=== PATIENT | female | born 1995 | race American Indian/Alaskan Native ===

== ENCOUNTER 2017-09-02 10:44 | Inpatient (IN) | payer MEDICAID, MEDICARE ==
[2017-09-02] MEDS ORDERED: Sodium Chloride 0.9% 1,000 ML IV ONE ×3 (11:02→13:00)
[2017-09-02] MEDS ORDERED: Albuterol 0.083% Inhal Sol (2.5 mg/3 mL) UD IH STA (11:03)
[2017-09-02] MEDS ORDERED: Sodium Chloride 0.9% 1,000 ML ONE ×2 (11:15→12:53)
[2017-09-02] MEDS ORDERED: Albuterol 0.083% Inhal Sol (2.5 mg/3 mL) UD ONE (11:15)
[2017-09-02 11:24] LABS: BASO # 0.1 K/uL (0.0-0.2); BASO % 0.3 % (0.0-2.0); EOS % 0.1 % (0.0-4.0); HEMOGLOBIN 14.9 g/dL (11.0-16.0); LYMPH # 0.8 K/uL (1.0-4.3); LYMPH % 3.4 % (20.0-40.0); MEAN CELL VOLUME 89.1 fL (81.0-99.0); MEAN CORPUSCULAR HEMOGLOBIN 30.9 pg (27.0-31.0); MEAN CORPUSCULAR HGB CONC 34.7 g/dL (33.0-37.0); MEAN PLATELET VOLUME 8.8 fL (7.2-11.7); MONO % 4.4 % (0.0-10.0); NEUT # 21.4 K/uL (1.8-7.0); NEUT % 91.8 % (50.0-75.0); PLATELET COUNT 272 K/uL (130-400); RBC 4.82 Mil/uL (3.80-5.20); RED CELL DISTRIBUTION WIDTH 12.8 % (11.5-14.5)
[2017-09-02 11:31] LABS: WHITE BLOOD COUNT 23.3 K/uL (4.8-10.8)
[2017-09-02 11:37] LABS: ALBUMIN 4.3 g/dL (3.5-5.0); ALT/SGPT 22 U/L (9-52); AST/SGOT 27 U/L (14-36); BLOOD UREA NITROGEN 8 mg/dL (7-17); CALCIUM 8.9 mg/dl (8.6-10.4); GFR AFRICAN-AMERICAN > 60; GFR NON-AFRICAN AMERICAN > 60
--- NOTE | 2017-09-02 11:49 | C.PDOC ---
History Of Present Illness 22-year-old female BIBA for sore throat and difficulty swallowing. Symptoms began yesterday and worsened today, and are associated with fever/chills and rhinorrhea. Patient has PMHx of asthma and B/L carotid paragangliomas (s/p radiation). She denies SOB, vomiting/diarrhea, neck pain/stiffness, dizziness. Time Seen by Provider: 09/02/17 10:55 Chief Complaint (Nursing): ENT Problem History Per: Patient, EMS History/Exam Limitations: Clinical Condition Onset/Duration Of Symptoms: Days (2) Current Symptoms Are (Timing): Still Present Symptoms Have Been: Continuous Severity: Moderate Past Medical History Reviewed: Historical Data, Nursing Documentation, Vital Signs Vital Signs: Last Vital Signs Temp 102 F H 09/02/17 11:05 Pulse 106 H 09/02/17 13:03 Resp 18 09/02/17 13:03 BP 126/60 09/02/17 13:03 Pulse Ox 99 09/02/17 13:03 - Medical History PMH: Asthma, Bipolar Disorder Other PMH: Paragangliomas B/L carotids Other Surgeries: attempted removal of B/L paragangliomas Family History: States: No Known Family Hx - Social History Hx Tobacco Use: Yes Hx Alcohol Use: Yes Hx Substance Use: No - Immunization History Hx Tetanus Toxoid Vaccination: No Hx Influenza Vaccination: No Hx Pneumococcal Vaccination: No Review Of Systems Except As Marked, All Systems Reviewed And Found Negative. Constitutional: Positive for: Fever, Chills ENT: Positive for: Nose Congestion, Throat Pain, Throat Swelling Cardiovascular: Negative for: Chest Pain Respiratory: Negative for: Cough, Shortness of Breath Skin: Negative for: Rash Physical Exam - Physical Exam Appears: Well, Non-toxic, In Acute Distress (in moderate distress) Skin: No Rash Head: Normacephalic Eye(s): bilateral: Normal Inspection Nose: Other (clear rhinorrhea ) Oral Mucosa: Moist Tongue: Normal Appearing, No Swelling Lips: Normal Appearing, No Swelling Throat: Erythema, Exudate, Drooling (patient spitting up saliva), Other (large erythematous tonils with exudates B/L , erythematous uvula with mild swelling) Neck: Supple Cardiovascular: Rhythm Regular (tachycardic ) Respiratory: Normal Breath Sounds (tachycardic), No Rales, No Rhonchi, No Wheezing Gastrointestinal/Abdominal: Normal Exam, Bowel Sounds, Soft, No Tenderness Neurological/Psych: Oriented x3 ED Course And Treatment - Laboratory Results Result Diagrams: 09/02/17 11:21 09/02/17 11:21 O2 Sat by Pulse Oximetry: 100 (RA) Pulse Ox Interpretation: Normal - Other Rad lateral soft tissue neck Xray X-Ray: Viewed By Me, Read By Radiologist Interpretation: Accession No. : [id number]. Patient Name / ID : MARILEE DENIS / [id number]. Exam Date : 09/02/2017 11:24:44 ( Approved ). Study Comment : Sex / Age : F / 22Y. Creator : Leonardo Shaw MD. Dictator : Leonardo Shaw MD. Floor Coverings Installer : Painter Mirror : Leonardo Shaw MD. Approver2 : Report Date : 09/02/2017 12:16:27. My Comment : . PROCEDURE: Radiographs of the neck (soft tissue). HISTORY: throat pain. COMPARISON: None. TECHNIQUE: Frontal and Lateral Radiographs of the neck, optimized for soft tissue visualization. FINDINGS: SOFT TISSUES: Epiglottis normal in appearance. No retropharyngeal soft tissue swelling. There is prominence of the tonsillar soft tissue which may reflect an acute tonsillitis. Question is raised of laryngeal edema, with vague increased soft tissue density in the region of the larynx, in the lateral projection. The tracheal air column is midline in position. There is no radiopaque foreign body. Numerous surgical clips are seen in the right lateral aspect of the neck. CERVICAL SPINE: Grossly unremarkable. OTHER FINDINGS: None. IMPRESSION: No evidence of epiglottitis. Tonsillar prominence may reflect acute tonsillitis. Questionable laryngeal edema. Progress Note: Patient placed on cardia monitor. Given IV solumedrol, IV NS bolus, IV Toradol and albuterol neb treatment. Strep A (+), IV Rocephin given. 1:10pm- Discussed patient with ENT Dr. Benavides, is aware of consult. - Physician Consult Information Physician Contacted: Sanjana Bridges Outcome Of Conversation: Discussed patient with hospitalist, agrees with admission for strep pharyngitis, difficulty tolerating PO, dehydration, leukocytosis. Disposition - Disposition
[2017-09-02 11:54] LABS: HCG,QUALITATIVE URINE NEGATIVE (NEGATIVE)
[2017-09-02 11:56] LABS: BANDS 2 % (0-2); LYMPHOCYTE 6 % (20-40); MONOCYTE 10 % (0-10); NEUTROPHIL 82 % (50-75); PLATELET ESTIMATE NORMAL (NORMAL); TOTAL CELLS COUNTED 100
[2017-09-02 12:00] LABS: SQUAMOUS EPITHIAL 9 /hpf (0-5); URINE BILIRUBIN NEGATIVE (NEGATIVE); URINE BLOOD 1+ (NEGATIVE); URINE CLARITY Hazy (Clear); URINE COLOR Yellow (YELLOW); URINE GLUCOSE (UA) NORMAL (Normal); URINE LEUKOCYTE ESTERASE NEG Leu/uL (Negative); URINE PROTEIN 1+ mg/dL (NEGATIVE); URINE UROBILINOGEN NORMAL mg/dL (0.2-1.0)
[2017-09-02 12:06] LABS: VENOUS BLOOD GAS PCO2 38 mmHg (40-60); VENOUS BLOOD GAS PO2 14 mm/Hg (30-55); VENOUS BLOOD PH 7.43 (7.32-7.43)
--- NOTE | 2017-09-02 12:18 | RAD ---
PROCEDURE: Radiographs of the neck (soft tissue). HISTORY: throat pain COMPARISON: None. TECHNIQUE: Frontal and Lateral Radiographs of the neck, optimized for soft tissue visualization. FINDINGS: SOFT TISSUES: Epiglottis normal in appearance. No retropharyngeal soft tissue swelling. There is prominence of the tonsillar soft tissue which may reflect an acute tonsillitis. Question is raised of laryngeal edema, with vague increased soft tissue density in the region of the larynx, in the lateral projection. The tracheal air column is midline in position. There is no radiopaque foreign body. Numerous surgical clips are seen in the right lateral aspect of the neck. CERVICAL SPINE: Grossly unremarkable. OTHER FINDINGS: None. IMPRESSION: No evidence of epiglottitis. Tonsillar prominence may reflect acute tonsillitis. Questionable laryngeal edema.
[2017-09-02] MEDS: cefTRIAXone IV 1 gm in Dextros 50 ML IV STA ×2 (12:25→12:38)
--- NOTE | 2017-09-02 14:19 | CP.PCM.HP ---
Addendum entered and electronically signed by Kamari Braun DO 09/02/17 18:57: Assessment and plan Strep pharyngitis -Fever 102, WBC 23.3 -Rapid strep positive, rapid flu negative -Neck xray: no evidence of epiglottitis. Tonsillar prominence may reflect acute tonsillitis -Neck CT: Enlarged palatine and adenoidal tonsils. No evidence of peritonsillar abscess (see report) -Clindamycin 600mg IV Q6hr -Toradol 30mg IV Q6 prn -NPO -Speech and swallow evaluate -Pending blood culture -ENT consult, Dr. Benavides help appreciated Right upper lobe infiltrate -Azithromycin 500mg IV q24 for atypical -Clindamycin 600mg IV Q6hr -CXR showed right upper lobe lung infiltrate, possible pneumonia (see report) Asthma -Albuterol IH Q4h prn -Oxygen 2L via NC prn Prophylactic measures -Pepcid -Heparin Discussed with attending Dr. Gutierrez Original Note: <Kamari Braun - Last Filed: 09/02/17 17:52> History of Present Illness - History of Present Illness History of Present Illness: CC: Dysphasia 22 year old female with past medical history of bilateral carotid paraganglioma s/p radiation therapy, asthma and bipolar disorder presents to the ED complains of difficulty swallowing. Patient states she woke up yesterday morning with sore throat and non productive cough. Patient tried having some soup and realized that she cannot swallow well due to pain. Other associated symptoms include left ear pain, runny nose, shortness of breath, hoarseness of voice and fatigue. Patient reports that her daughter is recovering from a flu at home. Patient states her asthma is well controlled. She was never hospitalized and never intubated for asthma. Patient had radiation therapy at [facility] in 2010 for paraganglioma and never followed up afterwards because her neck never bothered her since. Patient denies having headache, chest pain, nausea, vomiting, or diarrhea. PMD: Dr. Herrmann PMHx: bilateral carotid paraganglioma, asthma and bipolar disorder PSHx: attempted removal of paraganglioma Allergy: NKDA Social: Admits to tobacco and alcohol, denies drug use Family Hx: non contributory Home meds: Seroquel 25mg, ventolin Present on Admission - Present on Admission Any Indicators Present on Admission: No Review of Systems - Constitutional Constitutional: As Per HPI, Chills, Fever - EENT Eyes: As Per HPI. absent: Discharge, Irritation Ears: As Per HPI, Ear Pain Nose/Mouth/Throat: As Per HPI, Dysphagia, Sore Throat - Cardiovascular Cardiovascular: As Per HPI, Dyspnea. absent: Chest Pain - Respiratory Respiratory: As Per HPI, Cough, Dyspnea - Gastrointestinal Gastrointestinal: As Per HPI. absent: Diarrhea, Nausea, Vomiting - Genitourinary Genitourinary: As Per HPI. absent: Urinary Frequency, Urinary Hesitance - Musculoskeletal Musculoskeletal: As Per HPI - Integumentary Integumentary: As Per HPI - Neurological Neurological: As Per HPI. absent: Dizziness, Headaches - Psychiatric Psychiatric: As Per HPI - Endocrine Endocrine: As Per HPI Past Patient History - Past Social History Smoking Status: Heavy Smoker > 10 Cigarettes Daily - PULMONARY Hx Asthma: Yes - PSYCHIATRIC Hx Bipolar Disorder: Yes Hx Substance Use: No - SURGICAL HISTORY Hx Surgeries: Yes Other/Comment: "CAROTID TUMOR, COULD NOT BE REMOVED, HAD RADIATION". 2010 - ANESTHESIA Hx Anesthesia: Yes Hx Anesthesia Reactions: No Hx Malignant Hyperthermia: No Meds Allergies/Adverse Reactions: Allergies Allergy/AdvReac Type Severity Reaction Status Date / Time No Known Allergies Allergy Unverified 11/30/14 15:59 Physical Exam - Constitutional Appears: Non-toxic - Head Exam Head Exam: ATRAUMATIC, NORMAL INSPECTION - Eye Exam Eye Exam: EOMI, Normal appearance Pupil Exam: NORMAL ACCOMODATION - ENT Exam ENT Exam: Mucous Membranes Moist Additional comments: Bilateral tonsils and uvula englarged, erythematous. - Neck Exam Additional comments: surgical scar located at right anterior neck - Respiratory Exam Respiratory Exam: Clear to Auscultation Bilateral, NORMAL BREATHING PATTERN. absent: Wheezes, Respiratory Distress - Cardiovascular Exam Cardiovascular Exam: Tachycardia, +S1, +S2 - GI/Abdominal Exam GI & Abdominal Exam: Normal Bowel Sounds, Soft. absent: Tenderness - Extremities Exam Extremities exam: Positive for: normal inspection - Neurological Exam Neurological exam: Alert, Oriented x3 - Psychiatric Exam Psychiatric exam: Normal Affect, Normal Mood - Skin Skin Exam: Dry, Warm Results - Vital Signs Recent Vital Signs: Last Vital Signs Temp 98.7 F 09/02/17 13:40 Pulse 106 H 09/02/17 13:03 Resp 18 09/02/17 13:03 BP 126/60 09/02/17 13:03 Pulse Ox 100 09/02/17 14:12 - Labs Result Diagrams: 09/02/17 11:21 09/02/17 11:21 Labs: Laboratory Results - last 24 hr 09/02/17 09/02/17 09/02/17 11:03 11:03 11:21 WBC 23.3 H RBC 4.82 Hgb 14.9 Hct 42.9 MCV 89.1 MCH 30.9 MCHC 34.7 RDW 12.8 Plt Count 272 MPV 8.8 Neut % (Auto) 91.8 H Lymph % (Auto) 3.4 L [place] % (Auto) 4.4 Eos % (Auto) 0.1 Baso % (Auto) 0.3 Neut # (Auto) 21.4 H Lymph # (Auto) 0.8 L [place] # (Auto) 1.0 H Eos # (Auto) 0.0 Baso # (Auto) 0.1 Neutrophils % (Manual) 82 H Band Neutrophils % 2 Lymphocytes % (Manual) 6 L Monocytes % (Manual) 10 Platelet Estimate Normal RBC Morphology Normal pO2 VBG pH VBG pCO2 VBG HCO3 VBG Total CO2 VBG O2 Sat (Calc) VBG Base Excess VBG Potassium Glucose Lactate Sodium Potassium Chloride Carbon Dioxide Anion Gap BUN Creatinine Est GFR ( Amer) Est GFR (Non-Af Amer) Random Glucose Calcium Total Bilirubin AST ALT Alkaline Phosphatase Total Protein Albumin Globulin Albumin/Globulin Ratio Venous Blood Potassium Urine Color Urine Clarity Urine pH Ur Specific [place] Urine Protein Urine Glucose (UA) Urine Ketones Urine Blood Urine Nitrate Urine Bilirubin Urine Urobilinogen Ur Leukocyte Esterase Urine WBC (Auto) Urine RBC (Auto) Ur Squamous Epith Cells Urine HCG, Qual Influenza Typ A,B (EIA) Negative for flu a/b Grp A Beta Strep Ag Positive H 09/02/17 09/02/17 09/02/17 11:21 11:45 12:02 WBC RBC Hgb Hct MCV MCH MCHC RDW Plt Count MPV Neut % (Auto) Lymph % (Auto) [place] % (Auto) Eos % (Auto) Baso % (Auto) Neut # (Auto) Lymph # (Auto) [place] # (Auto) Eos # (Auto) Baso # (Auto) Neutrophils % (Manual) Band Neutrophils % Lymphocytes % (Manual) Monocytes % (Manual) Platelet Estimate RBC Morphology pO2 14 L VBG pH 7.43 VBG pCO2 38 L VBG HCO3 23.6 VBG Total CO2 26.4 VBG O2 Sat (Calc) 23.2 L VBG Base Excess 1.0 VBG Potassium 3.3 L Glucose 81 Lactate 1.2 Sodium 135 135.0 Potassium 3.7 Chloride 97 L 101.0 Carbon Dioxide 25 Anion Gap 17 BUN 8 Creatinine 0.9 Est GFR ( Amer) > 60 Est GFR (Non-Af Amer) > 60 Random Glucose 89 Calcium 8.9 Total Bilirubin 1.0 AST 27 ALT 22 Alkaline Phosphatase 64 Total Protein 8.4 H Albumin 4.3 Globulin 4.2 H Albumin/Globulin Ratio 1.0 Venous Blood Potassium 3.3 L Urine Color Yellow Urine Clarity Hazy Urine pH 6.0 Ur Specific [place] 1.024 Urine Protein 1+ H Urine Glucose (UA) Normal Urine Ketones 2+ H Urine Blood 1+ H Urine Nitrate Negative Urine Bilirubin Negative Urine Urobilinogen Normal Ur Leukocyte Esterase Neg Urine WBC (Auto) 2 Urine RBC (Auto) 17 H Ur Squamous Epith Cells 9 H Urine HCG, Qual Negative Influenza Typ A,B (EIA) Grp A Beta Strep Ag Assessment & Plan - Assessment and Plan (Free Text) Assessment: Strep pharyngitis -Fever 102, WBC 23.3 -Rapid strep positive, rapid flu negative -Neck xray: no evidence of epiglottitis. Tonsillar prominence may reflect acute tonsillitis -Neck CT: Enlarged palatine and adenoidal tonsils. No evidence of peritonsillar abscess (see report) -Clindamycin 600mg IV Q6hr -Toradol 30mg IV Q6 prn -NPO -Speech and swallow evaluate -Pending blood culture -ENT consult, Dr. Benavides help appreciated Asthma -Albuterol IH Q4h prn -Oxygen 2L via NC prn Prophylactic measures -Pepcid -Heparin Discussed with attending Dr. Gutierrez <Evin Gutierrez - Last Filed: 09/02/17 19:22> Results - Vital Signs Recent Vital Signs: Last Vital Signs Temp 98.6 F 09/02/17 15:04 Pulse 86 09/02/17 18:24 Resp 18 09/02/17 18:24 BP 104/62 09/02/17 18:24 Pulse Ox 98 09/02/17 18:24 - Labs Result Diagrams: 09/02/17 11:21 09/02/17 11:21 Labs: Laboratory Results - last 24 hr 09/02/17 09/02/17 09/02/17 11:03 11:03 11:21 WBC 23.3 H RBC 4.82 Hgb 14.9 Hct 42.9 MCV 89.1 MCH 30.9 MCHC 34.7 RDW 12.8 Plt Count 272 MPV 8.8 Neut % (Auto) 91.8 H Lymph % (Auto) 3.4 L [place] % (Auto) 4.4 Eos % (Auto) 0.1 Baso % (Auto) 0.3 Neut # (Auto) 21.4 H Lymph # (Auto) 0.8 L [place] # (Auto) 1.0 H Eos # (Auto) 0.0 Baso # (Auto) 0.1 Neutrophils % (Manual) 82 H Band Neutrophils % 2 Lymphocytes % (Manual) 6 L Monocytes % (Manual) 10 Platelet Estimate Normal RBC Morphology Normal pO2 VBG pH VBG pCO2 VBG HCO3 VBG Total CO2 VBG O2 Sat (Calc) VBG Base Excess VBG Potassium Glucose Lactate Sodium Potassium Chloride Carbon Dioxide Anion Gap BUN Creatinine Est GFR ( Amer) Est GFR (Non-Af Amer) Random Glucose Calcium Total Bilirubin AST ALT Alkaline Phosphatase Total Protein Albumin Globulin Albumin/Globulin Ratio Venous Blood Potassium Urine Color Urine Clarity Urine pH Ur Specific [place] Urine Protein Urine Glucose (UA) Urine Ketones Urine Blood Urine Nitrate Urine Bilirubin Urine Urobilinogen Ur Leukocyte Esterase Urine WBC (Auto) Urine RBC (Auto) Ur Squamous Epith Cells Urine HCG, Qual Influenza Typ A,B (EIA) Negative for flu a/b Grp A Beta Strep Ag Positive H 09/02/17 09/02/17 09/02/17 11:21 11:45 12:02 WBC RBC Hgb Hct MCV MCH MCHC RDW Plt Count MPV Neut % (Auto) Lymph % (Auto) [place] % (Auto) Eos % (Auto) Baso % (Auto) Neut # (Auto) Lymph # (Auto) [place] # (Auto) Eos # (Auto) Baso # (Auto) Neutrophils % (Manual) Band Neutrophils % Lymphocytes % (Manual) Monocytes % (Manual) Platelet Estimate RBC Morphology pO2 14 L VBG pH 7.43 VBG pCO2 38 L VBG HCO3 23.6 VBG Total CO2 26.4 VBG O2 Sat (Calc) 23.2 L VBG Base Excess 1.0 VBG Potassium 3.3 L Glucose 81 Lactate 1.2 Sodium 135 135.0 Potassium 3.7 Chloride 97 L 101.0 Carbon Dioxide 25 Anion Gap 17 BUN 8 Creatinine 0.9 Est GFR ( Amer) > 60 Est GFR (Non-Af Amer) > 60 Random Glucose 89 Calcium 8.9 Total Bilirubin 1.0 AST 27 ALT 22 Alkaline Phosphatase 64 Total Protein 8.4 H Albumin 4.3 Globulin 4.2 H Albumin/Globulin Ratio 1.0 Venous Blood Potassium 3.3 L Urine Color Yellow Urine Clarity Hazy Urine pH 6.0 Ur Specific [place] 1.024 Urine Protein 1+ H Urine Glucose (UA) Normal Urine Ketones 2+ H Urine Blood 1+ H Urine Nitrate Negative Urine Bilirubin Negative Urine Urobilinogen Normal Ur Leukocyte Esterase Neg Urine WBC (Auto) 2 Urine RBC (Auto) 17 H Ur Squamous Epith Cells 9 H Urine HCG, Qual Negative Influenza Typ A,B (EIA) Grp A Beta Strep Ag Attending/Attestation - Attestation I have personally seen and examined this patient.: Yes I have fully participated in the care of the patient.: Yes I have reviewed all pertinent clinical information: Yes Notes (Text): Patient was seen and examined History taken from the patient. Complaining of throat pain .No stridor. Noted voice change,no dysphagia. chest x ray shows right upper lobe infiltrate .CT neck without contrast done RUL infiltrate,enlarged tonsils, no evidence of abscess. Has leukoctyosis/ wbc 23,fever 102F . GR A strep ag positive continue clindamycin and Zithromax. pulmonary consult d/w resident. I agree with the documentation of the resident's assessment and the plan
--- NOTE | 2017-09-02 14:37 | RAD ---
PROCEDURE: CHEST RADIOGRAPH, 1 VIEW HISTORY: admission COMPARISON: None available. FINDINGS: LUNGS: Right upper lobe infiltrate bordered by the minor fissure. No other infiltrate identified. PLEURA: No pneumothorax or pleural fluid seen. CARDIOVASCULAR: Normal. OSSEOUS STRUCTURES: No significant abnormalities. VISUALIZED UPPER ABDOMEN: Normal. OTHER FINDINGS: None. IMPRESSION: Right upper lobe infiltrate. Possible pneumonia.
[2017-09-02] MEDS: Clindamycin 600mg/50ml NS 600 MG/50 ML BAG IVPB SCH ×2 (14:46→21:37)
[2017-09-02] MEDS: Dextrose 5%/0.9% NS 1,000 ML IV SCH (14:47)
--- NOTE | 2017-09-02 15:12 | CT ---
PROCEDURE: CT NECK WITHOUT CONTRAST HISTORY: fever, h/o carotid paraganglioma COMPARISON: None. TECHNIQUE: CT of the neck without intravenous contrast. Coronal and sagittal reformats generated. Radiation dose: DLP 408.58 mGy-cm This CT exam was performed using one or more of the following dose reduction techniques: Automated exposure control, adjustment of the mA and/or kV according to patient size, and/or use of iterative reconstruction technique. FINDINGS: NASOPHARYNX: Unremarkable. SUPRAHYOID NECK: Enlarged adenoidal and palatine tonsils. No evidence of peritonsillar abscess. Please note that the examination is limited by the absence of intravenous contrast administration. INFRAHYOID NECK: Unremarkable larynx, hypopharynx, and supraglottic space. Vocal cords intact. MASS: None. GLANDS: Parotid and submandibular glands unremarkable. Normal size thyroid gland, without nodule. LYMPH NODES: Normal. No lymphadenopathy. CERVICAL SPINE: No fracture or focal lesion. OTHER FINDINGS: Numerous surgical clips in right-sided neck. Please correlate with history. There is a right upper lobe infiltrate only partially included in this examination. IMPRESSION: Evidence of prior surgery with numerous clips in right-sided neck. Enlarged palatine and adenoidal tonsils. No evidence of peritonsillar abscess although evaluation is limited by the absence of intravenous contrast administration. No evidence of epiglottitis. Right upper lobe infiltrate noted.
[2017-09-02] MEDS ORDERED: Azithromycin 500 MG in Sodium Chloride 0.9% 250 ML IVPB SCH (19:30)
[2017-09-03 01:17] VITALS: RESP 20
[2017-09-03] MEDS: Dextrose 5%/0.9% NS 1,000 ML IV SCH ×3 (02:26→19:32)
[2017-09-03] MEDS: Clindamycin 600mg/50ml NS 600 MG/50 ML BAG IVPB SCH ×4 (02:27→19:32)
[2017-09-03 06:51] LABS: BASO % 0.1 % (0.0-2.0); LYMPH # 0.6 K/uL (1.0-4.3); LYMPH % 2.6 % (20.0-40.0); MEAN CORPUSCULAR HEMOGLOBIN 30.4 pg (27.0-31.0); MEAN CORPUSCULAR HGB CONC 33.8 g/dL (33.0-37.0); MEAN PLATELET VOLUME 9.1 fL (7.2-11.7); MONO % 4.3 % (0.0-10.0); NEUT # 22.9 K/uL (1.8-7.0); PLATELET COUNT 240 K/uL (130-400); RBC 4.01 Mil/uL (3.80-5.20); RED CELL DISTRIBUTION WIDTH 12.8 % (11.5-14.5); WHITE BLOOD COUNT 24.6 K/uL (4.8-10.8)
[2017-09-03 06:54] LABS: HEMOGLOBIN 12.2 g/dL (11.0-16.0)
[2017-09-03 07:48] LABS: ALB/GLOB RATIO 0.9 (1.0-2.1); ALT/SGPT 13 U/L (9-52); AST/SGOT 20 U/L (14-36); BLOOD UREA NITROGEN 8 mg/dL (7-17); CALCIUM 7.4 mg/dl (8.6-10.4); GFR AFRICAN-AMERICAN > 60; GFR NON-AFRICAN AMERICAN > 60
--- NOTE | 2017-09-03 08:42 | CP.PCM.PN ---
<Atilio Stephens - Last Filed: 09/03/17 12:32> Subjective - Date & Time of Evaluation Date of Evaluation: 09/03/17 Time of Evaluation: 08:00 - Subjective Subjective: Medicine progress note for Dr. Argueta Patient seen and examined. Patient states that she has been able to tolerate a soft diet. Patient is not currently experiencing throat pain but states that the left side of her throat is intermittently sore. Patient denies any other acute complaints at this time. Objective - Vital Signs/Intake and Output Vital Signs (last 24 hours): Temp Pulse Resp BP Pulse Ox 97.9 F 81 20 100/61 98 09/03/17 00:00 09/03/17 03:35 09/03/17 00:00 09/03/17 00:00 09/03/17 03:35 Intake and Output: 09/03/17 09/03/17 06:59 18:59 Intake Total 720 Balance 720 - Medications Medications: Current Medications Albuterol (Ventolin Hfa 90 Mcg/Actuation (8 G)) 2 puff IH Q4H PRN PRN Reason: Cough Famotidine (Pepcid) 20 mg PO DAILY [facility] Heparin Sodium (Porcine) (Heparin) 5,000 units SC Q8 [facility] Last Admin: 09/03/17 05:53 Dose: 5,000 units Clindamycin Phosphate (Cleocin In Normal Saline) 600 mg in 50 mls @ 100 mls/hr IVPB Q6H [facility] PRN Reason: Protocol Last Admin: 09/03/17 02:27 Dose: 100 mls/hr Dextrose/Sodium Chloride (Dextrose 5%/0.9% Ns 1000 Ml) 1,000 mls @ 100 mls/hr IV .Q10H [facility] Last Admin: 09/03/17 02:26 Dose: 100 mls/hr Azithromycin 500 mg/ Sodium (Chloride) 250 mls @ 167 mls/hr IVPB Q24H [facility] PRN Reason: Protocol Last Admin: 09/02/17 19:40 Dose: 167 mls/hr Ketorolac Tromethamine (Toradol) 30 mg IVP Q6 PRN PRN Reason: Pain, moderate (4-7) Last Admin: 09/03/17 06:28 Dose: 30 mg Quetiapine Fumarate (Seroquel) 25 mg PO HS [facility] Last Admin: 09/02/17 22:55 Dose: 25 mg - Labs Labs: 09/03/17 06:39 09/03/17 06:39 - Additional Findings Additional findings: - Constitutional Appears: Non-toxic - Head Exam Head Exam: ATRAUMATIC, NORMAL INSPECTION - Eye Exam Eye Exam: EOMI, Normal appearance Pupil Exam: NORMAL ACCOMODATION - ENT Exam ENT Exam: Mucous Membranes Moist Additional comments: Bilateral tonsils and uvula englarged, erythematous. Tonsillar exudates noted. - Neck Exam Additional comments: surgical scar located at right anterior neck - Respiratory Exam Respiratory Exam: Clear to Auscultation Bilateral, NORMAL BREATHING PATTERN. absent: Wheezes, Respiratory Distress - Cardiovascular Exam Cardiovascular Exam: RRR, +S1, +S2 - GI/Abdominal Exam GI & Abdominal Exam: Normal Bowel Sounds, Soft. absent: Tenderness - Extremities Exam Extremities exam: Positive for: normal inspection - Neurological Exam Neurological exam: Alert, Oriented x3 - Psychiatric Exam Psychiatric exam: Normal Affect, Normal Mood - Skin Skin Exam: Dry, Warm Assessment and Plan - Assessment and Plan (Free Text) Plan: Strep pharyngitis -Fever 102, WBC 23.3 -Rapid strep positive, rapid flu negative -Neck xray: no evidence of epiglottitis. Tonsillar prominence may reflect acute tonsillitis -Neck CT: Enlarged palatine and adenoidal tonsils. No evidence of peritonsillar abscess (see report) -Clindamycin 600mg IV Q6hr -Toradol 30mg IV Q6 prn -Regular soft diet -Speech and swallow evaluate -Pending blood culture -ENT consult, Dr. Benavides help appreciated * No acute intervention on this admission per ENT. Will need outpatient follow up. Right upper lobe infiltrate -Discontinued Azithromycin 500mg IV q24 -Replaced with Zosyn 3.375 gm Q6H -Clindamycin 600mg IV Q6hr -CXR showed right upper lobe lung infiltrate, possible pneumonia (see report) Asthma -Albuterol IH Q4h prn -Oxygen 2L via NC prn Prophylactic measures -Pepcid -Heparin Disposition: Pending improvement in clinical status including leukocytosis, we will consider discharge tomorrow. Discussed with Dr. Ellie Stephens PGY-1 <Leonardo Argueta - Last Filed: 09/03/17 13:34> Objective - Vital Signs/Intake and Output Vital Signs (last 24 hours): Temp Pulse Resp BP Pulse Ox 97.9 F 81 20 100/61 98 09/03/17 00:00 09/03/17 03:35 09/03/17 00:00 09/03/17 00:00 09/03/17 03:35 Intake and Output: 09/03/17 09/03/17 06:59 18:59 Intake Total 720 Balance 720 - Medications Medications: Current Medications Albuterol (Ventolin Hfa 90 Mcg/Actuation (8 G)) 2 puff IH Q4H PRN PRN Reason: Cough Famotidine (Pepcid) 20 mg PO DAILY [facility] Last Admin: 09/03/17 11:08 Dose: 20 mg Heparin Sodium (Porcine) (Heparin) 5,000 units SC Q8 [facility] Last Admin: 09/03/17 05:53 Dose: 5,000 units Clindamycin Phosphate (Cleocin In Normal Saline) 600 mg in 50 mls @ 100 mls/hr IVPB Q6H [facility] PRN Reason: Protocol Last Admin: 09/03/17 09:00 Dose: 100 mls/hr Dextrose/Sodium Chloride (Dextrose 5%/0.9% Ns 1000 Ml) 1,000 mls @ 100 mls/hr IV .Q10H [facility] Last Admin: 09/03/17 11:08 Dose: 100 mls/hr Piperacillin Sod/Tazobactam (Sod 3.375 gm/ Sodium Chloride) 100 mls @ 200 mls/ hr IVPB Q6H [facility] PRN Reason: Protocol Ketorolac Tromethamine (Toradol) 30 mg IVP Q6 PRN PRN Reason: Pain, moderate (4-7) Last Admin: 09/03/17 13:08 Dose: 30 mg Quetiapine Fumarate (Seroquel) 25 mg PO HS [facility] Last Admin: 09/02/17 22:55 Dose: 25 mg - Labs Labs: 09/03/17 06:39 09/03/17 06:39 Attending/Attestation - Attestation I have personally seen and examined this patient.: Yes I have fully participated in the care of the patient.: Yes I have reviewed all pertinent clinical information, including history, physical exam and plan: Yes Notes (Text): 09/03/17 13:30 Medical attending: Patient was seen and examined by me. Agree with the above note by the resident The patient was not in any acute distress when we saw her. She reported still having some medium level of pain when seen, The patient on exam had very enlarged and edematous tonsils with some exudate. WBC very high She was earlier seen by ENT as well Patient wanted to go home - however given the very elevated WBC we explained to her that to wait another day untilw e can see a down trending of the WBCs. Leonardo Argueta
[2017-09-03 08:54] LABS: BANDS 5 % (0-2); LYMPHOCYTE 6 % (20-40); MONOCYTE 2 % (0-10); NEUTROPHIL 87 % (50-75); PLATELET ESTIMATE NORMAL (NORMAL); TOTAL CELLS COUNTED 100
--- NOTE | 2017-09-03 13:11 | CON ---
DATE: 09/03/2017 REQUESTING PHYSICIAN: Sanjana Bridges DO REASON FOR CONSULTATION: Throat pain. HISTORY: This is a 22-year-old female with a multiple day history of worsening throat pain, bilateral, constant, [id number] in intensity, who presents to the ER with these symptoms yesterday. The patient was assessed to having tonsillitis, Strep positive, was given steroids and antibiotics. Today, the patient reports that the throat pain has improved and she is tolerating liquids, it is moderate in intensity on both sides, constant at this today. She also has a history of paragangliomas around the carotids. She said she had it on both sides, got radiation for it, but it could not be resected since it wraps around the carotid. She did not follow up with her ENT physician as she stated that she was too scared. PAST MEDICAL HISTORY: As noted in the chart by me. MEDICATIONS: As noted in the chart by me. PHYSICAL EXAMINATION HEENT: Head atraumatic, normocephalic. FACE: Good facial movements bilaterally. CONSTITUTIONAL: Well fed, well nourished. COMMUNICATION: Communicates well and appropriately. EXTERNAL NOSE AND EARS: No masses. No lesions. No erythema. No edema. INTERNAL NOSE AND EARS: No masses. No lesions. No erythema. No edema. LIPS AND GUMS: No masses. No lesions. No erythema. No edema. ORAL CAVITY AND OROPHARYNX: Erythema, edema of the tonsils with exudates. NECK: Supple. No thyromegaly. No goiter. LYMPH NODES: No lymphadenopathy of the neck.. ASSESSMENT: 1. Severe tonsillitis. 2. Deviated septum. 3. Paraganglioma of the neck. PLAN: Since the patient is tolerating p.o., may be discharged home on p.o. antibiotics and Medrol Dosepak. The patient was given Dr. Carreon' name and phone number to follow up for her paraganglioma. 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 I also contacted Dr. Carreon and gave Dr. Carreon the patient's name and number, so Dr. Carreon' office can also contact the patient and have her follow up for her paraganglioma. Rick Benavides MD [facility] # [phone]
[2017-09-03] MEDS: Piperacillin/Tazobact 3.375 GM in Sodium Chloride 100 ML IVPB SCH ×2 (14:00→19:26)
--- NOTE | 2017-09-03 18:12 | CP.PCM.CON ---
History of Present Illness - History of Present Illness History of Present Illness: reason for consult: pneumonia Ms. Rincon is a 22F with PMHx of bilateral carotid paragangliomas s/p radiation therapy, asthma and bipolar disorder who presented to the ED complaining of difficulty swallowing, sore throat, shortness of breath, voice hoarseness and ear pain. The patient note that her daughter is recovering from a flu at home. PMD: Dr. Herrmann PMHx: asthma, b/l carotid paragangliomas irradiated in 2010, bipolar disorder PSx: None Meds: albuterol PRN, seroquel Allergies: Cherries SocialHx: admits alcohol and heavy tobacco use, denies illicit drug use Review of Systems - Review of Systems All systems: reviewed and no additional remarkable complaints except (fever and cough) Past Patient History - Past Medical History & Family History Past Medical History?: Yes - Past Social History Smoking Status: Current Some Days Smoker - CARDIAC Hx Cardiac Disorders: No - PULMONARY Hx Respiratory Disorders: Yes Hx Asthma: Yes - NEUROLOGICAL Hx Neurological Disorder: No - HEENT Hx HEENT Problems: No - RENAL Hx Chronic Kidney Disease: No - ENDOCRINE/METABOLIC Hx Endocrine Disorders: No - HEMATOLOGICAL/ONCOLOGICAL Hx Blood Disorders: No - INTEGUMENTARY Hx Dermatological Problems: No - MUSCULOSKELETAL/RHEUMATOLOGICAL Hx Musculoskeletal Disorders: No Hx Falls: No - GASTROINTESTINAL Hx Gastrointestinal Disorders: No - GENITOURINARY/GYNECOLOGICAL Hx Genitourinary Disorders: No - PSYCHIATRIC Hx Psychophysiologic Disorder: Yes Hx Bipolar Disorder: Yes Hx Substance Use: No - SURGICAL HISTORY Hx Surgeries: Yes Other/Comment: "CAROTID TUMOR, COULD NOT BE REMOVED, HAD RADIATION". 2010 - ANESTHESIA Hx Anesthesia: Yes Hx Anesthesia Reactions: No Hx Malignant Hyperthermia: No Has any member of the family had a problem w/ anesthesia?: No Meds Allergies/Adverse Reactions: Allergies Allergy/AdvReac Type Severity Reaction Status Date / Time No Known Allergies Allergy Unverified 11/30/14 15:59 - Medications Medications: Current Medications Albuterol (Ventolin Hfa 90 Mcg/Actuation (8 G)) 2 puff IH Q4H PRN PRN Reason: Cough Famotidine (Pepcid) 20 mg PO DAILY [facility] Last Admin: 09/03/17 11:08 Dose: 20 mg Heparin Sodium (Porcine) (Heparin) 5,000 units SC Q8 [facility] Last Admin: 09/03/17 14:32 Dose: 5,000 units Clindamycin Phosphate (Cleocin In Normal Saline) 600 mg in 50 mls @ 100 mls/hr IVPB Q6H [facility] PRN Reason: Protocol Last Admin: 09/03/17 14:32 Dose: 100 mls/hr Dextrose/Sodium Chloride (Dextrose 5%/0.9% Ns 1000 Ml) 1,000 mls @ 100 mls/hr IV .Q10H [facility] Last Admin: 09/03/17 11:08 Dose: 100 mls/hr Piperacillin Sod/Tazobactam (Sod 3.375 gm/ Sodium Chloride) 100 mls @ 200 mls/ hr IVPB Q6H [facility] PRN Reason: Protocol Last Admin: 09/03/17 14:00 Dose: 200 mls/hr Ketorolac Tromethamine (Toradol) 30 mg IVP Q6 PRN PRN Reason: Pain, moderate (4-7) Last Admin: 09/03/17 13:08 Dose: 30 mg Quetiapine Fumarate (Seroquel) 25 mg PO HS [facility] Last Admin: 09/02/17 22:55 Dose: 25 mg Physical Exam - Head Exam Head Exam: ATRAUMATIC, NORMOCEPHALIC - Eye Exam Eye Exam: Normal appearance - ENT Exam ENT Exam: Mucous Membranes Moist - Neck Exam Neck exam: Positive for: Normal Inspection - Respiratory Exam Respiratory Exam: Clear to Auscultation Bilateral - Cardiovascular Exam Cardiovascular Exam: REGULAR RHYTHM - GI/Abdominal Exam GI & Abdominal Exam: Normal Bowel Sounds, Soft Results - Vital Signs Recent Vital Signs: Last Vital Signs Temp 97.9 F 09/03/17 00:00 Pulse 81 09/03/17 03:35 Resp 20 09/03/17 00:00 BP 100/61 09/03/17 00:00 Pulse Ox 98 09/03/17 03:35 - Labs Result Diagrams: 09/03/17 06:39 09/03/17 06:39 Labs: Laboratory Results - last 24 hr 09/03/17 09/03/17 09/03/17 06:39 06:39 06:39 WBC 24.6 H RBC 4.01 Hgb 12.2 D Hct 36.1 MCV 90.0 MCH 30.4 MCHC 33.8 RDW 12.8 Plt Count 240 MPV 9.1 Neut % (Auto) 93.0 H Lymph % (Auto) 2.6 L [place] % (Auto) 4.3 Eos % (Auto) 0.0 Baso % (Auto) 0.1 Neut # (Auto) 22.9 H Lymph # (Auto) 0.6 L [place] # (Auto) 1.0 H Eos # (Auto) 0.0 Baso # (Auto) 0.0 Neutrophils % (Manual) 87 H Band Neutrophils % 5 H Lymphocytes % (Manual) 6 L Monocytes % (Manual) 2 Platelet Estimate Normal Sodium 140 Potassium 3.6 Chloride 109 H Carbon Dioxide 21 L Anion Gap 14 BUN 8 Creatinine 0.6 L Est GFR ( Amer) > 60 Est GFR (Non-Af Amer) > 60 Random Glucose 146 H Calcium 7.4 L Total Bilirubin 0.2 AST 20 ALT 13 Alkaline Phosphatase 50 Total Protein 6.4 Albumin 3.0 L D Globulin 3.4 Albumin/Globulin Ratio 0.9 L HIV 1&2 Antibody Screen Negative Assessment & Plan (1) Pneumonia Status: Acute Comment: - flu negative. - RUL pneumonia identified on CXR and partially on neck CT 09/02/17. - WBC 24.6, 5 Bands continue to trend. - Lactate 1.2. - on clindamycin per primary medical team. 2. Hx of asthma. - Albuterol PRN
[2017-09-04] MEDS: Piperacillin/Tazobact 3.375 GM in Sodium Chloride 100 ML IVPB SCH ×4 (01:02→18:54)
[2017-09-04] MEDS: Clindamycin 600mg/50ml NS 600 MG/50 ML BAG IVPB SCH ×4 (02:05→20:50)
[2017-09-04] MEDS: Albuterol HFA 90 mcg/actuation (8 g) IH PRN ×2 (02:51→09:01)
[2017-09-04] MEDS: Dextrose 5%/0.9% NS 1,000 ML IV SCH ×3 (06:45→16:12)
--- NOTE | 2017-09-04 07:24 | CP.PCM.PN ---
<MaureenAtilio potts - Last Filed: 09/04/17 16:06> Subjective - Date & Time of Evaluation Date of Evaluation: 09/04/17 Time of Evaluation: 09:00 - Subjective Subjective: Medicine progress note for Dr. Argueta Patient seen and examined. Patient complaining of dyspnea and requesting nebulizer treatment. Patient states that she had 4 episodes of loose stools with some dark red blood noted mixed in. Objective - Vital Signs/Intake and Output Vital Signs (last 24 hours): Temp Pulse Resp BP Pulse Ox 98.4 F 75 20 118/76 97 09/04/17 00:00 09/04/17 02:51 09/04/17 00:00 09/04/17 00:00 09/04/17 00:00 Intake and Output: 09/04/17 09/04/17 06:59 18:59 Intake Total 1350 Output Total 800 Balance 550 - Medications Medications: Current Medications Albuterol (Ventolin Hfa 90 Mcg/Actuation (8 G)) 2 puff IH Q4H PRN PRN Reason: Cough Last Admin: 09/04/17 02:51 Dose: 2 puff Famotidine (Pepcid) 20 mg PO DAILY [facility] Last Admin: 09/03/17 11:08 Dose: 20 mg Heparin Sodium (Porcine) (Heparin) 5,000 units SC Q8 [facility] Last Admin: 09/03/17 14:32 Dose: 5,000 units Clindamycin Phosphate (Cleocin In Normal Saline) 600 mg in 50 mls @ 100 mls/hr IVPB Q6H [facility] PRN Reason: Protocol Last Admin: 09/04/17 02:05 Dose: 100 mls/hr Dextrose/Sodium Chloride (Dextrose 5%/0.9% Ns 1000 Ml) 1,000 mls @ 100 mls/hr IV .Q10H [facility] Last Admin: 09/04/17 06:45 Dose: Not Given Piperacillin Sod/Tazobactam (Sod 3.375 gm/ Sodium Chloride) 100 mls @ 200 mls/ hr IVPB Q6H [facility] PRN Reason: Protocol Last Admin: 09/04/17 06:53 Dose: 200 mls/hr Ketorolac Tromethamine (Toradol) 30 mg IVP Q6 PRN PRN Reason: Pain, moderate (4-7) Last Admin: 09/04/17 01:47 Dose: 30 mg Quetiapine Fumarate (Seroquel) 25 mg PO HS [facility] Last Admin: 09/03/17 21:16 Dose: 25 mg - Labs Labs: 09/03/17 06:39 09/03/17 06:39 - Additional Findings Additional findings: - Constitutional Appears: Non-toxic - Head Exam Head Exam: ATRAUMATIC, NORMAL INSPECTION - Eye Exam Eye Exam: EOMI, Normal appearance Pupil Exam: NORMAL ACCOMODATION - ENT Exam ENT Exam: Mucous Membranes Moist Additional comments: Bilateral tonsils and uvula englarged, erythematous. Tonsillar exudates noted. - Neck Exam Additional comments: surgical scar located at right anterior neck - Respiratory Exam Respiratory Exam: Clear to Auscultation Bilateral, NORMAL BREATHING PATTERN. absent: Wheezes, Respiratory Distress - Cardiovascular Exam Cardiovascular Exam: RRR, +S1, +S2 - GI/Abdominal Exam GI & Abdominal Exam: Normal Bowel Sounds, Soft. absent: Tenderness - Extremities Exam Extremities exam: Positive for: normal inspection - Neurological Exam Neurological exam: Alert, Oriented x3 - Psychiatric Exam Psychiatric exam: Normal Affect, Normal Mood - Skin Skin Exam: Dry, Warm Assessment and Plan - Assessment and Plan (Free Text) Plan: Strep pharyngitis -Fever 102, WBC 23.3 -Rapid strep positive, rapid flu negative -Neck xray: no evidence of epiglottitis. Tonsillar prominence may reflect acute tonsillitis -Neck CT: Enlarged palatine and adenoidal tonsils. No evidence of peritonsillar abscess (see report) -Clindamycin 600mg IV Q6hr -Regular soft diet -Speech and swallow evaluate -Pending blood culture -ENT consult, Dr. Benavides help appreciated * No acute intervention on this admission per ENT. Will need outpatient follow up. Right upper lobe infiltrate -Discontinued Azithromycin 500mg IV q24 -Replaced with Zosyn 3.375 gm Q6H -Clindamycin 600mg IV Q6hr -CXR showed right upper lobe lung infiltrate, possible pneumonia (see report) -CT chest w.o. contrast reveals bilateral multi lobar pulmonary infiltrates atypical for bacterial pneumonia and small bilateral pleural effusion -ordered atypical pneumonia studies including mycoplasma IgG,IgM, urine legionella, urine strep Asthma -Albuterol IH Q4h prn -Duoneb Q6 [facility] -Oxygen 2L via NC prn -Solumedrol 20 mg IV Q12 -Singulair 10 mg HS Prophylactic measures -Pepcid -Heparin on hold Discussed with Dr. Ellie Stephens PGY-1 <Leonardo Argueta H - Last Filed: 09/04/17 16:19> Objective - Vital Signs/Intake and Output Vital Signs (last 24 hours): Temp Pulse Resp BP Pulse Ox 101.3 F H 75 20 118/76 97 09/04/17 09:48 09/04/17 02:51 09/04/17 00:00 09/04/17 00:00 09/04/17 00:00 Intake and Output: 09/04/17 09/04/17 06:59 18:59 Intake Total 1550 Output Total 800 Balance 750 - Medications Medications: Current Medications Acetaminophen (Tylenol 325mg Tab) 650 mg PO Q6 PRN PRN Reason: Fever >100.4 F Last Admin: 09/04/17 09:48 Dose: 650 mg Albuterol (Ventolin Hfa 90 Mcg/Actuation (8 G)) 2 puff IH Q4H PRN PRN Reason: Cough Last Admin: 09/04/17 09:01 Dose: 2 puff Albuterol/Ipratropium (Duoneb 3 Mg/0.5 Mg (3 Ml) Ud) 3 ml INH RQ6 [facility] Last Admin: 09/04/17 13:13 Dose: 3 ml Famotidine (Pepcid) 20 mg PO DAILY [facility] Last Admin: 09/04/17 09:48 Dose: 20 mg Heparin Sodium (Porcine) (Heparin) 5,000 units SC Q8 [facility] Last Admin: 09/03/17 14:32 Dose: 5,000 units Clindamycin Phosphate (Cleocin In Normal Saline) 600 mg in 50 mls @ 100 mls/hr IVPB Q6H [facility] PRN Reason: Protocol Last Admin: 09/04/17 14:14 Dose: 100 mls/hr Dextrose/Sodium Chloride (Dextrose 5%/0.9% Ns 1000 Ml) 1,000 mls @ 100 mls/hr IV .Q10H [facility] Last Admin: 09/04/17 11:45 Dose: 100 mls/hr Piperacillin Sod/Tazobactam (Sod 3.375 gm/ Sodium Chloride) 100 mls @ 200 mls/ hr IVPB Q6H [facility] PRN Reason: Protocol Last Admin: 09/04/17 13:00 Dose: 200 mls/hr Ketorolac Tromethamine (Toradol) 30 mg IVP Q6 PRN PRN Reason: Pain, moderate (4-7) Last Admin: 09/04/17 11:44 Dose: 30 mg Methylprednisolone (Solu-Medrol) 20 mg IVP Q12H [facility] Last Admin: 09/04/17 11:44 Dose: 20 mg Montelukast Sodium (Singulair) 10 mg PO HS [facility] Quetiapine Fumarate (Seroquel) 25 mg PO HS [facility] Last Admin: 09/03/17 21:16 Dose: 25 mg - Labs Labs: 09/04/17 12:05 09/04/17 12:00 Attending/Attestation - Attestation I have personally seen and examined this patient.: Yes I have fully participated in the care of the patient.: Yes I have reviewed all pertinent clinical information, including history, physical exam and plan: Yes Notes (Text): 09/04/17 16:10 Medical attending: Patient was seen and examined by me. Agree with the above note by the resident The patient earlier in the AM was short of breath. By the time I rounded with resident later in the AM she was improved with the duonebs that were given. She again asked if she could go home - and at that time we had not yet had a CBC return since yesterday she had a very high WBC and left shift. On exam we also had her walk with us as well. She claimed she felt fine when walking however I observed her huffing and puffing. I then listened to her heart after walking her and she was tachycardic as well. We ordered a CT scan of the chest - it's a very large pneumonia. Later the CBC returned and the WBC did drop to 17 down from 20. So will continue with the IV abx and also check atypicals cultures as well. Her throat is decorating machine tender with the strep - however better. Probably she is having some blood/discharge from there as well but her Hgb has been stable. I'm not sure why she so pressing to leave the hospital. We have explained to her that she is rather ill and still has some very high numbers thank you Leonardo Argueta
[2017-09-04] MEDS: Albuterol-Ipratrop 3 mg / 0.5 (3 ml) UD INH SCH ×3 (09:08→19:11)
[2017-09-04] MEDS: MethylPREDNISolone 40 mg Vial IVP SCH ×2 (11:44→22:29)
[2017-09-04 12:15] LABS: BASO % 0.2 % (0.0-2.0); EOS % 0.1 % (0.0-4.0); HEMOGLOBIN 12.3 g/dL (11.0-16.0); LYMPH # 1.3 K/uL (1.0-4.3); LYMPH % 7.5 % (20.0-40.0); MEAN CELL VOLUME 89.7 fL (81.0-99.0); MEAN CORPUSCULAR HEMOGLOBIN 30.3 pg (27.0-31.0); MEAN CORPUSCULAR HGB CONC 33.8 g/dL (33.0-37.0); MEAN PLATELET VOLUME 9.5 fL (7.2-11.7); MONO % 5.5 % (0.0-10.0); NEUT # 15.1 K/uL (1.8-7.0); NEUT % 86.7 % (50.0-75.0); PLATELET COUNT 269 K/uL (130-400); RBC 4.07 Mil/uL (3.80-5.20); RED CELL DISTRIBUTION WIDTH 13.1 % (11.5-14.5); WHITE BLOOD COUNT 17.4 K/uL (4.8-10.8)
[2017-09-04 12:36] LABS: ALBUMIN 3.3 g/dL (3.5-5.0); ALT/SGPT 25 U/L (9-52); AST/SGOT 36 U/L (14-36); BLOOD UREA NITROGEN 8 mg/dL (7-17); CALCIUM 7.8 mg/dl (8.6-10.4); GFR AFRICAN-AMERICAN > 60; GFR NON-AFRICAN AMERICAN > 60
[2017-09-04 12:51] LABS: BANDS 1 % (0-2); LYMPHOCYTE 9 % (20-40); MONOCYTE 4 % (0-10); NEUTROPHIL 86 % (50-75); TOTAL CELLS COUNTED 100
[2017-09-04 12:52] LABS: PLATELET ESTIMATE NORMAL (NORMAL)
--- NOTE | 2017-09-04 15:25 | CT ---
PROCEDURE: CT Chest without contrast HISTORY: assess right lobe infiltrates COMPARISON: None. TECHNIQUE: Contiguous axial images were obtained through the chest without intravenous contrast enhancement. Sagittal and coronal reconstructions were performed. Radiation dose (DLP): 282.10 mGy-cm. This CT exam was performed using one or more of the following dose reduction techniques: Automated exposure control, adjustment of the mA and/or kV according to patient size, and/or use of iterative reconstruction technique. FINDINGS: LUNGS: Bilateral multi lobar pulmonary infiltrates. There is ground-glass opacity as well as some amy alveolar opacity in the right lower lobe and middle lobe. Amy consolidation is seen in the right upper lobe and left upper and lower lobe. MEDIASTINUM: Unremarkable thoracic aorta. No aneurysm. Normal sized heart. Main pulmonary artery unremarkable. No vascular congestion. No lymphadenopathy. PLEURA: Small bilateral pleural effusion. No pneumothorax. BONES: No fracture. No destructive lesion. UPPER ABDOMEN: Grossly unremarkable. OTHER FINDINGS: None. IMPRESSION: Bilateral multi lobar pulmonary infiltrates. This is atypical for bacterial pneumonia. Consider viral pneumonia or opportunistic infection in the appropriate setting. Small bilateral pleural effusion.
--- NOTE | 2017-09-04 15:48 | CP.PCM.PN ---
Subjective - Date & Time of Evaluation Date of Evaluation: 09/04/17 Time of Evaluation: 10:45 - Subjective Subjective: patient seen and examined Complaining of shortness of breath and cough Rapid strep positive Being treated for right upper lung pneumo Continue antibiotics Follow-up culture and sensitivity Continue nebulizer treatment Repeat chest x-ray Objective - Vital Signs/Intake and Output Vital Signs (last 24 hours): Temp Pulse Resp BP Pulse Ox 101.3 F H 75 20 118/76 97 09/04/17 09:48 09/04/17 02:51 09/04/17 00:00 09/04/17 00:00 09/04/17 00:00 Intake and Output: 09/04/17 09/04/17 06:59 18:59 Intake Total 1550 Output Total 800 Balance 750 - Medications Medications: Current Medications Acetaminophen (Tylenol 325mg Tab) 650 mg PO Q6 PRN PRN Reason: Fever >100.4 F Last Admin: 09/04/17 09:48 Dose: 650 mg Albuterol (Ventolin Hfa 90 Mcg/Actuation (8 G)) 2 puff IH Q4H PRN PRN Reason: Cough Last Admin: 09/04/17 09:01 Dose: 2 puff Albuterol/Ipratropium (Duoneb 3 Mg/0.5 Mg (3 Ml) Ud) 3 ml INH RQ6 [facility] Last Admin: 09/04/17 13:13 Dose: 3 ml Famotidine (Pepcid) 20 mg PO DAILY [facility] Last Admin: 09/04/17 09:48 Dose: 20 mg Heparin Sodium (Porcine) (Heparin) 5,000 units SC Q8 [facility] Last Admin: 09/03/17 14:32 Dose: 5,000 units Clindamycin Phosphate (Cleocin In Normal Saline) 600 mg in 50 mls @ 100 mls/hr IVPB Q6H [facility] PRN Reason: Protocol Last Admin: 09/04/17 14:14 Dose: 100 mls/hr Dextrose/Sodium Chloride (Dextrose 5%/0.9% Ns 1000 Ml) 1,000 mls @ 100 mls/hr IV .Q10H [facility] Last Admin: 09/04/17 11:45 Dose: 100 mls/hr Piperacillin Sod/Tazobactam (Sod 3.375 gm/ Sodium Chloride) 100 mls @ 200 mls/ hr IVPB Q6H [facility] PRN Reason: Protocol Last Admin: 09/04/17 13:00 Dose: 200 mls/hr Ketorolac Tromethamine (Toradol) 30 mg IVP Q6 PRN PRN Reason: Pain, moderate (4-7) Last Admin: 09/04/17 11:44 Dose: 30 mg Methylprednisolone (Solu-Medrol) 20 mg IVP Q12H [facility] Last Admin: 09/04/17 11:44 Dose: 20 mg Montelukast Sodium (Singulair) 10 mg PO HS [facility] Potassium Chloride (K-Dur 20 Meq Er Tab) 40 meq PO ONCE ONE Stop: 09/04/17 16:01 Quetiapine Fumarate (Seroquel) 25 mg PO HS [facility] Last Admin: 09/03/17 21:16 Dose: 25 mg - Labs Labs: 09/04/17 12:05 09/04/17 12:00 Assessment and Plan (1) Pneumonia Status: Acute
[2017-09-04] MEDS ORDERED: Potassium Chloride 20 mEq ER Tab PO ONE (16:00)
[2017-09-05] MEDS: Piperacillin/Tazobact 3.375 GM in Sodium Chloride 100 ML IVPB SCH ×4 (01:00→19:40)
[2017-09-05] MEDS: Clindamycin 600mg/50ml NS 600 MG/50 ML BAG IVPB SCH ×4 (01:31→20:38)
[2017-09-05] MEDS: Albuterol-Ipratrop 3 mg / 0.5 (3 ml) UD INH SCH ×4 (01:45→19:34)
[2017-09-05] MEDS: Dextrose 5%/0.9% NS 1,000 ML IV SCH (02:09)
[2017-09-05 07:44] LABS: BASO % 0.1 % (0.0-2.0); HEMOGLOBIN 11.9 g/dL (11.0-16.0); LYMPH # 0.9 K/uL (1.0-4.3); LYMPH % 8.1 % (20.0-40.0); MEAN CELL VOLUME 88.8 fL (81.0-99.0); MEAN CORPUSCULAR HEMOGLOBIN 30.5 pg (27.0-31.0); MEAN CORPUSCULAR HGB CONC 34.4 g/dL (33.0-37.0); MONO # 0.4 K/uL (0.0-0.8); MONO % 3.3 % (0.0-10.0); NEUT # 10.2 K/uL (1.8-7.0); NEUT % 88.5 % (50.0-75.0); PLATELET COUNT 282 K/uL (130-400); RBC 3.89 Mil/uL (3.80-5.20); RED CELL DISTRIBUTION WIDTH 13.1 % (11.5-14.5); WHITE BLOOD COUNT 11.6 K/uL (4.8-10.8)
--- NOTE | 2017-09-05 07:47 | CP.PCM.PN ---
<Atilio Stephens - Last Filed: 09/05/17 10:11> Subjective - Date & Time of Evaluation Date of Evaluation: 09/05/17 Time of Evaluation: 08:00 - Subjective Subjective: Medicine progress note for Dr. Argueta Patient seen and examined. Patient states that she feels better than yesterday. She is anxious to go home as she has a young daughter. Patient states that she is not short of breath but she does feel some chest congestion. Patient was seen again on rounds where she was walking with us. Patient appeared to have labored breathing with ambulation. Objective - Vital Signs/Intake and Output Vital Signs (last 24 hours): Temp Pulse Resp BP Pulse Ox 98.2 F 95 H 20 99/65 L 97 09/04/17 18:10 09/04/17 16:00 09/04/17 16:00 09/04/17 16:00 09/04/17 16:00 Intake and Output: 09/05/17 09/05/17 06:59 18:59 Intake Total 1800 Balance 1800 - Medications Medications: Current Medications Acetaminophen (Tylenol 325mg Tab) 650 mg PO Q6 PRN PRN Reason: Fever >100.4 F Last Admin: 09/04/17 17:10 Dose: 650 mg Albuterol (Ventolin Hfa 90 Mcg/Actuation (8 G)) 2 puff IH Q4H PRN PRN Reason: Cough Last Admin: 09/04/17 09:01 Dose: 2 puff Albuterol/Ipratropium (Duoneb 3 Mg/0.5 Mg (3 Ml) Ud) 3 ml INH RQ6 [facility] Last Admin: 09/05/17 01:45 Dose: 3 ml Famotidine (Pepcid) 20 mg PO DAILY [facility] Last Admin: 09/04/17 09:48 Dose: 20 mg Heparin Sodium (Porcine) (Heparin) 5,000 units SC Q8 [facility] Last Admin: 09/03/17 14:32 Dose: 5,000 units Clindamycin Phosphate (Cleocin In Normal Saline) 600 mg in 50 mls @ 100 mls/hr IVPB Q6H [facility] PRN Reason: Protocol Last Admin: 09/05/17 07:09 Dose: 100 mls/hr Dextrose/Sodium Chloride (Dextrose 5%/0.9% Ns 1000 Ml) 1,000 mls @ 100 mls/hr IV .Q10H [facility] Last Admin: 09/05/17 02:09 Dose: Not Given Piperacillin Sod/Tazobactam (Sod 3.375 gm/ Sodium Chloride) 100 mls @ 200 mls/ hr IVPB Q6H [facility] PRN Reason: Protocol Last Admin: 09/05/17 06:00 Dose: 200 mls/hr Ketorolac Tromethamine (Toradol) 30 mg IVP Q6 PRN PRN Reason: Pain, moderate (4-7) Last Admin: 09/05/17 06:45 Dose: 30 mg Methylprednisolone (Solu-Medrol) 20 mg IVP Q12H [facility] Last Admin: 09/04/17 22:29 Dose: 20 mg Montelukast Sodium (Singulair) 10 mg PO [facility] Last Admin: 09/04/17 21:59 Dose: 10 mg Oseltamivir Phosphate (Tamiflu Cap) 75 mg PO BID [facility] PRN Reason: Protocol Stop: 09/09/17 16:26 Last Admin: 09/04/17 18:45 Dose: 75 mg Quetiapine Fumarate (Seroquel) 25 mg PO [facility] Last Admin: 09/04/17 21:59 Dose: 25 mg - Labs Labs: 09/04/17 12:05 09/04/17 12:00 - Additional Findings Additional findings: - Constitutional Appears: Non-toxic - Head Exam Head Exam: ATRAUMATIC, NORMAL INSPECTION - Eye Exam Eye Exam: EOMI, Normal appearance Pupil Exam: NORMAL ACCOMODATION - ENT Exam ENT Exam: Mucous Membranes Moist Additional comments: Bilateral tonsils and uvula englarged, erythematous. Improvement in tonsillar exudates noted. - Neck Exam Additional comments: surgical scar located at right anterior neck - Respiratory Exam Respiratory Exam: Clear to Auscultation Bilateral, NORMAL BREATHING PATTERN. absent: Wheezes, Respiratory Distress - Cardiovascular Exam Cardiovascular Exam: RRR, +S1, +S2 - GI/Abdominal Exam GI & Abdominal Exam: Normal Bowel Sounds, Soft. absent: Tenderness - Extremities Exam Extremities exam: Positive for: normal inspection - Neurological Exam Neurological exam: Alert, Oriented x3 - Psychiatric Exam Psychiatric exam: Normal Affect, Normal Mood - Skin Skin Exam: Dry, Warm Assessment and Plan - Assessment and Plan (Free Text) Plan: Strep pharyngitis -Fever 102, WBC 23.3 on admission -Rapid strep positive, rapid flu negative -Neck xray: no evidence of epiglottitis. Tonsillar prominence may reflect acute tonsillitis -Neck CT: Enlarged palatine and adenoidal tonsils. No evidence of peritonsillar abscess (see report) -Clindamycin 600mg IV Q6hr -Regular soft diet -Blood cultures negative thus far -ENT consult, Dr. Benavides help appreciated * No acute intervention on this admission per ENT. Will need outpatient follow up. Right upper lobe infiltrate -Discontinued Azithromycin 500mg IV q24 -Replaced with Zosyn 3.375 gm Q6H -Clindamycin 600mg IV Q6hr -CXR showed right upper lobe lung infiltrate, possible pneumonia (see report) -CT chest w.o. contrast reveals bilateral multi lobar pulmonary infiltrates atypical for bacterial pneumonia and small bilateral pleural effusion -ordered atypical pneumonia studies including mycoplasma IgG,IgM, urine legionella, urine strep Asthma -Albuterol IH Q4h prn -Duoneb Q6 [facility] -Oxygen 2L via NC prn -Solumedrol 20 mg IV Q12 -Singulair 10 mg HS -Mucinex 600 mg BID Prophylactic measures -Pepcid -Heparin on hold Discussed with Dr. Ellie Stephens PGY-1 <Leonardo Argueta H - Last Filed: 09/05/17 11:51> Objective - Vital Signs/Intake and Output Vital Signs (last 24 hours): Temp Pulse Resp BP Pulse Ox 98.4 F 96 H 20 108/70 95 09/05/17 08:14 09/05/17 08:14 09/05/17 08:14 09/05/17 08:14 09/05/17 08:14 Intake and Output: 09/05/17 09/05/17 06:59 18:59 Intake Total 1800 Balance 1800 - Medications Medications: Current Medications Acetaminophen (Tylenol 325mg Tab) 650 mg PO Q6 PRN PRN Reason: Fever >100.4 F Last Admin: 09/04/17 17:10 Dose: 650 mg Albuterol (Ventolin Hfa 90 Mcg/Actuation (8 G)) 2 puff IH Q4H PRN PRN Reason: Cough Last Admin: 09/04/17 09:01 Dose: 2 puff Albuterol/Ipratropium (Duoneb 3 Mg/0.5 Mg (3 Ml) Ud) 3 ml INH RQ6 [facility] Last Admin: 09/05/17 09:28 Dose: 3 ml Famotidine (Pepcid) 20 mg PO DAILY [facility] Last Admin: 09/05/17 09:44 Dose: 20 mg Guaifenesin (Mucinex La) 600 mg PO BID [facility] Last Admin: 09/05/17 10:49 Dose: 600 mg Heparin Sodium (Porcine) (Heparin) 5,000 units SC Q8 [facility] Last Admin: 09/03/17 14:32 Dose: 5,000 units Clindamycin Phosphate (Cleocin In Normal Saline) 600 mg in 50 mls @ 100 mls/hr IVPB Q6H [facility] PRN Reason: Protocol Last Admin: 09/05/17 07:09 Dose: 100 mls/hr Piperacillin Sod/Tazobactam (Sod 3.375 gm/ Sodium Chloride) 100 mls @ 200 mls/ hr IVPB Q6H [facility] PRN Reason: Protocol Last Admin: 09/05/17 06:00 Dose: 200 mls/hr Sodium Chloride (Sodium Chloride 0.9%) 1,000 mls @ 100 mls/hr IV .Q10H [facility] Ketorolac Tromethamine (Toradol) 30 mg IVP Q6 PRN PRN Reason: Pain, moderate (4-7) Last Admin: 09/05/17 06:45 Dose: 30 mg Methylprednisolone (Solu-Medrol) 20 mg IVP Q12H [facility] Last Admin: 09/05/17 10:11 Dose: 20 mg Montelukast Sodium (Singulair) 10 mg PO [facility] Last Admin: 09/04/17 21:59 Dose: 10 mg Oseltamivir Phosphate (Tamiflu Cap) 75 mg PO BID [facility] PRN Reason: Protocol Stop: 09/09/17 16:26 Last Admin: 09/05/17 09:44 Dose: 75 mg Quetiapine Fumarate (Seroquel) 25 mg PO [facility] Last Admin: 09/04/17 21:59 Dose: 25 mg - Labs Labs: 09/05/17 07:18 09/05/17 07:18 Attending/Attestation - Attestation I have personally seen and examined this patient.: Yes I have fully participated in the care of the patient.: Yes I have reviewed all pertinent clinical information, including history, physical exam and plan: Yes Notes (Text): Medical attending: Patient was seen and examined by me, agrees the above note by the resident. Today when we saw her she asked again if she could go home. As mentioned previously we went over her her the CT scan results that she had showing that she has a massive bilateral pneumonias. Is also a small pleural effusions as well. In so she's been getting IV antibiotics when she came in her white blood cell count was 20, since then it's decreased down to less than 10. She visibly looks better and states she feels better. However on exam we also have her walk around with us and she's not able to speak in full sentences when she walks around, she still huffing and puffing very loudly when we walker. So at this time will continue continue to monitor patient, she was resumes on DuoNeb's as well as IV Solu-Medrol. Thank you very much, Leonardo Argueta
[2017-09-05 08:20] LABS: ALB/GLOB RATIO 0.9 (1.0-2.1); ALBUMIN 3.1 g/dL (3.5-5.0); ALT/SGPT 15 U/L (9-52); AST/SGOT 20 U/L (14-36); BLOOD UREA NITROGEN 8 mg/dL (7-17); GFR AFRICAN-AMERICAN > 60; GFR NON-AFRICAN AMERICAN > 60
[2017-09-05 09:11] LABS: LYMPHOCYTE 3 % (20-40); MONOCYTE 3 % (0-10); NEUTROPHIL 94 % (50-75); PLATELET ESTIMATE NORMAL (NORMAL); TOTAL CELLS COUNTED 100
[2017-09-05] MEDS: MethylPREDNISolone 40 mg Vial IVP SCH ×2 (10:11→22:55)
[2017-09-05] MEDS: Sodium Chloride 0.9% 1,000 ML IV SCH ×2 (10:11→20:47)
[2017-09-05 10:28] LABS: LEGIONELLA AG URINE NEGATIVE (NEGATIVE)
[2017-09-05] MEDS: guaiFENesin 600 mg ER Tab PO SCH ×2 (10:49→17:49)
[2017-09-05 11:27] LABS: N MENINGITIS ACY/W135 NEGATIVE (NEGATIVE); STREP PNEUMONIAE NEGATIVE (NEGATIVE); STREPTOCOCCUS B NEGATIVE (NEGATIVE)
[2017-09-05 11:28] LABS: N MENINGITIS B/ECOLI K1 NEGATIVE (NEGATIVE)
--- NOTE | 2017-09-05 14:10 | CP.PCM.PN ---
Subjective - Date & Time of Evaluation Date of Evaluation: 09/05/17 Time of Evaluation: 10:25 - Subjective Subjective: Patient seen and examined Complaining of dyspnea on exertion Wants to go home Afebrile Slight cough CAT scan of the chest noted with bilateral infiltrates Objective - Vital Signs/Intake and Output Vital Signs (last 24 hours): Temp Pulse Resp BP Pulse Ox 98.4 F 96 H 20 108/70 95 09/05/17 08:14 09/05/17 08:14 09/05/17 08:14 09/05/17 08:14 09/05/17 08:14 Intake and Output: 09/05/17 09/05/17 06:59 18:59 Intake Total 1800 Balance 1800 - Medications Medications: Current Medications Acetaminophen (Tylenol 325mg Tab) 650 mg PO Q6 PRN PRN Reason: Fever >100.4 F Last Admin: 09/04/17 17:10 Dose: 650 mg Albuterol (Ventolin Hfa 90 Mcg/Actuation (8 G)) 2 puff IH Q4H PRN PRN Reason: Cough Last Admin: 09/04/17 09:01 Dose: 2 puff Albuterol/Ipratropium (Duoneb 3 Mg/0.5 Mg (3 Ml) Ud) 3 ml INH RQ6 [facility] Last Admin: 09/05/17 13:37 Dose: 3 ml Famotidine (Pepcid) 20 mg PO DAILY [facility] Last Admin: 09/05/17 09:44 Dose: 20 mg Guaifenesin (Mucinex La) 600 mg PO BID [facility] Last Admin: 09/05/17 10:49 Dose: 600 mg Heparin Sodium (Porcine) (Heparin) 5,000 units SC Q8 [facility] Last Admin: 09/03/17 14:32 Dose: 5,000 units Clindamycin Phosphate (Cleocin In Normal Saline) 600 mg in 50 mls @ 100 mls/hr IVPB Q6H [facility] PRN Reason: Protocol Last Admin: 09/05/17 14:03 Dose: 100 mls/hr Piperacillin Sod/Tazobactam (Sod 3.375 gm/ Sodium Chloride) 100 mls @ 200 mls/ hr IVPB Q6H [facility] PRN Reason: Protocol Last Admin: 09/05/17 12:02 Dose: 200 mls/hr Sodium Chloride (Sodium Chloride 0.9%) 1,000 mls @ 100 mls/hr IV .Q10H [facility] Ketorolac Tromethamine (Toradol) 30 mg IVP Q6 PRN PRN Reason: Pain, moderate (4-7) Last Admin: 09/05/17 14:04 Dose: 30 mg Methylprednisolone (Solu-Medrol) 20 mg IVP Q12H [facility] Last Admin: 09/05/17 10:11 Dose: 20 mg Montelukast Sodium (Singulair) 10 mg PO HS [facility] Last Admin: 09/04/17 21:59 Dose: 10 mg Oseltamivir Phosphate (Tamiflu Cap) 75 mg PO BID [facility] PRN Reason: Protocol Stop: 09/09/17 16:26 Last Admin: 09/05/17 09:44 Dose: 75 mg Quetiapine Fumarate (Seroquel) 25 mg PO HS [facility] Last Admin: 09/04/17 21:59 Dose: 25 mg - Labs Labs: 09/05/17 07:18 09/05/17 07:18 - Head Exam Head Exam: ATRAUMATIC, NORMOCEPHALIC - ENT Exam ENT Exam: Mucous Membranes Moist - Neck Exam Neck Exam: Normal Inspection - Respiratory Exam Respiratory Exam: Clear to Ausculation Bilateral - Cardiovascular Exam Cardiovascular Exam: REGULAR RHYTHM - GI/Abdominal Exam GI & Abdominal Exam: Soft, Normal Bowel Sounds Assessment and Plan (1) Pneumonia Assessment & Plan: CAT scan of the chest consistent w bilateral infiltrate HIV test negative Continue IV antibiotics Continue nebulizer treatment and IV steroids Antinuclear antibodies, ESR Status: Acute
[2017-09-05] MEDS ORDERED: Promethazine/Cod 6.25mg-10mg/5ml Syr UD PO ONE (16:19)
[2017-09-06] MEDS: Piperacillin/Tazobact 3.375 GM in Sodium Chloride 100 ML IVPB SCH ×3 (00:10→14:00)
[2017-09-06] MEDS: Albuterol-Ipratrop 3 mg / 0.5 (3 ml) UD INH SCH ×3 (01:40→13:55)
[2017-09-06] MEDS: Clindamycin 600mg/50ml NS 600 MG/50 ML BAG IVPB SCH ×3 (01:41→14:10)
[2017-09-06] MEDS: Sodium Chloride 0.9% 1,000 ML IV SCH (07:12)
--- NOTE | 2017-09-06 07:19 | CP.PCM.PN ---
Subjective - Date & Time of Evaluation Date of Evaluation: 09/06/17 Time of Evaluation: 07:10 - Subjective Subjective: Medicine progress note for Dr. Argueta Patient seen and examined. Objective - Vital Signs/Intake and Output Vital Signs (last 24 hours): Temp Pulse Resp BP Pulse Ox 98.2 F 80 20 116/72 98 09/06/17 00:00 09/06/17 00:00 09/06/17 00:00 09/06/17 00:00 09/06/17 00:00 Intake and Output: 09/06/17 09/06/17 06:59 18:59 Intake Total 1150 Balance 1150 - Medications Medications: Current Medications Acetaminophen (Tylenol 325mg Tab) 650 mg PO Q6 PRN PRN Reason: Fever >100.4 F Last Admin: 09/04/17 17:10 Dose: 650 mg Albuterol (Ventolin Hfa 90 Mcg/Actuation (8 G)) 2 puff IH Q4H PRN PRN Reason: Cough Last Admin: 09/04/17 09:01 Dose: 2 puff Albuterol/Ipratropium (Duoneb 3 Mg/0.5 Mg (3 Ml) Ud) 3 ml INH RQ6 [facility] Last Admin: 09/06/17 01:40 Dose: Not Given Famotidine (Pepcid) 20 mg PO DAILY [facility] Last Admin: 09/05/17 09:44 Dose: 20 mg Guaifenesin (Mucinex La) 600 mg PO BID [facility] Last Admin: 09/05/17 17:49 Dose: 600 mg Heparin Sodium (Porcine) (Heparin) 5,000 units SC Q8 [facility] Last Admin: 09/03/17 14:32 Dose: 5,000 units Clindamycin Phosphate (Cleocin In Normal Saline) 600 mg in 50 mls @ 100 mls/hr IVPB Q6H [facility] PRN Reason: Protocol Last Admin: 09/06/17 01:41 Dose: 100 mls/hr Piperacillin Sod/Tazobactam (Sod 3.375 gm/ Sodium Chloride) 100 mls @ 200 mls/ hr IVPB Q6H [facility] PRN Reason: Protocol Last Admin: 09/06/17 06:17 Dose: 200 mls/hr Sodium Chloride (Sodium Chloride 0.9%) 1,000 mls @ 100 mls/hr IV .Q10H [facility] Last Admin: 09/06/17 07:12 Dose: Not Given Ketorolac Tromethamine (Toradol) 30 mg IVP Q6 PRN Last Admin: 09/06/17 06:15 Dose: 30 mg Methylprednisolone (Solu-Medrol) 20 mg IVP Q12H [facility] Last Admin: 09/05/17 22:55 Dose: 20 mg Montelukast Sodium (Singulair) 10 mg PO HS [facility] Last Admin: 09/05/17 21:25 Dose: 10 mg Oseltamivir Phosphate (Tamiflu Cap) 75 mg PO BID [facility] PRN Reason: Protocol Stop: 09/09/17 16:26 Last Admin: 09/05/17 17:46 Dose: 75 mg Quetiapine Fumarate (Seroquel) 25 mg PO [facility] Last Admin: 09/05/17 21:25 Dose: 25 mg - Labs Labs: 09/05/17 07:18 09/05/17 07:18 - Additional Findings Additional findings: - Constitutional Appears: Non-toxic - Head Exam Head Exam: ATRAUMATIC, NORMAL INSPECTION - Eye Exam Eye Exam: EOMI, Normal appearance Pupil Exam: NORMAL ACCOMODATION - ENT Exam ENT Exam: Mucous Membranes Moist Additional comments: Bilateral tonsils and uvula englarged, erythematous. Improvement in tonsillar exudates noted. - Neck Exam Additional comments: surgical scar located at right anterior neck - Respiratory Exam Respiratory Exam: Clear to Auscultation Bilateral, NORMAL BREATHING PATTERN. absent: Wheezes, Respiratory Distress - Cardiovascular Exam Cardiovascular Exam: RRR, +S1, +S2 - GI/Abdominal Exam GI & Abdominal Exam: Normal Bowel Sounds, Soft. absent: Tenderness - Extremities Exam Extremities exam: Positive for: normal inspection - Neurological Exam Neurological exam: Alert, Oriented x3 - Psychiatric Exam Psychiatric exam: Normal Affect, Normal Mood - Skin Skin Exam: Dry, Warm Assessment and Plan - Assessment and Plan (Free Text) Plan: Strep pharyngitis -Fever 102, WBC 23.3 on admission -Rapid strep positive, rapid flu negative -Neck xray: no evidence of epiglottitis. Tonsillar prominence may reflect acute tonsillitis -Neck CT: Enlarged palatine and adenoidal tonsils. No evidence of peritonsillar abscess (see report) -Clindamycin 600mg IV Q6hr -Regular soft diet -Blood cultures negative thus far -ENT consult, Dr. Benavides help appreciated * No acute intervention on this admission per ENT. Will need outpatient follow up. Right upper lobe infiltrate -Discontinued Azithromycin 500mg IV q24 -Replaced with Zosyn 3.375 gm Q6H -Clindamycin 600mg IV Q6hr -CXR showed right upper lobe lung infiltrate, possible pneumonia (see report) -CT chest w.o. contrast reveals bilateral multi lobar pulmonary infiltrates atypical for bacterial pneumonia and small bilateral pleural effusion -ordered atypical pneumonia studies including mycoplasma IgG,IgM, urine legionella, urine strep Asthma -Albuterol IH Q4h prn -Duoneb Q6 [facility] -Oxygen 2L via [place] prn -Solumedrol 20 mg IV Q12 -Singulair 10 mg HS -Mucinex 600 mg BID Prophylactic measures -Pepcid -Heparin on hold
[2017-09-06 07:33] LABS: BASO % 0.3 % (0.0-2.0); HEMOGLOBIN 11.1 g/dL (11.0-16.0); LYMPH # 1.5 K/uL (1.0-4.3); LYMPH % 12.2 % (20.0-40.0); MEAN CELL VOLUME 90.3 fL (81.0-99.0); MEAN CORPUSCULAR HEMOGLOBIN 30.8 pg (27.0-31.0); MEAN CORPUSCULAR HGB CONC 34.1 g/dL (33.0-37.0); MEAN PLATELET VOLUME 8.8 fL (7.2-11.7); MONO # 0.5 K/uL (0.0-0.8); MONO % 4.3 % (0.0-10.0); NEUT # 10.1 K/uL (1.8-7.0); NEUT % 83.2 % (50.0-75.0); RBC 3.61 Mil/uL (3.80-5.20); WHITE BLOOD COUNT 12.2 K/uL (4.8-10.8)
[2017-09-06 07:57] LABS: ALB/GLOB RATIO 0.9 (1.0-2.1); ALBUMIN 3.2 g/dL (3.5-5.0); ALT/SGPT 14 U/L (9-52); AST/SGOT 28 U/L (14-36); BLOOD UREA NITROGEN 11 mg/dL (7-17); CALCIUM 8.2 mg/dl (8.6-10.4); GFR AFRICAN-AMERICAN > 60; GFR NON-AFRICAN AMERICAN > 60
[2017-09-06 08:18] VITALS: BP 119/78; PULSE 87; TEMP 97.6; O2SAT 100
[2017-09-06] MEDS: guaiFENesin 600 mg ER Tab PO SCH (10:24)
[2017-09-06] MEDS ORDERED: Promethazine/Cod 6.25mg-10mg/5ml Syr UD PO PRN (10:34)
--- NOTE | 2017-09-06 11:22 | CP.PCM.DIS ---
<Atilio Stephens - Last Filed: 09/06/17 14:16> Provider - Provider Date of Admission: 09/02/17 16:58 Attending physician: Leonardo Argueta DO Primary care physician: Dr. Herrmann Consults: ENT: Dr. Benavides Pulmonology: Dr. Adam Time Spent in preparation of Discharge (in minutes): 40 Diagnosis - Discharge Diagnosis (1) Strep pharyngitis Status: Acute Priority: High (2) Pneumonia Status: Acute Priority: High (3) Viral pneumonia Status: Suspected Priority: High (4) History of asthma Status: Chronic Priority: High (5) Paraganglioma Status: Chronic Priority: Medium (6) History of bipolar disorder Status: Chronic Priority: Medium Hospital Course - Lab Results Lab Results: Micro Results 09/02/17 11:25 Blood Blood Culture - Preliminary NO GROWTH AFTER 3 DAYS 09/02/17 11:10 Blood Blood Culture - Preliminary NO GROWTH AFTER 3 DAYS Most Recent Lab Values WBC 12.2 K/uL (4.8-10.8) H 09/06/17 07:07 RBC 3.61 Mil/uL (3.80-5.20) L 09/06/17 07:07 Hgb 11.1 g/dL (11.0-16.0) 09/06/17 07:07 Hct 32.6 % (34.0-47.0) L 09/06/17 07:07 MCV 90.3 fL (81.0-99.0) 09/06/17 07:07 MCH 30.8 pg (27.0-31.0) 09/06/17 07:07 MCHC 34.1 g/dL (33.0-37.0) 09/06/17 07:07 RDW 13.0 % (11.5-14.5) 09/06/17 07:07 Plt Count 280 K/uL (130-400) 09/06/17 07:07 MPV 8.8 fL (7.2-11.7) 09/06/17 07:07 Neut % (Auto) 83.2 % (50.0-75.0) H 09/06/17 07:07 Lymph % (Auto) 12.2 % (20.0-40.0) L 09/06/17 07:07 [place] % (Auto) 4.3 % (0.0-10.0) 09/06/17 07:07 Eos % (Auto) 0.0 % (0.0-4.0) 09/06/17 07:07 Baso % (Auto) 0.3 % (0.0-2.0) 09/06/17 07:07 Neut # (Auto) 10.1 K/uL (1.8-7.0) H 09/06/17 07:07 Lymph # (Auto) 1.5 K/uL (1.0-4.3) 09/06/17 07:07 [place] # (Auto) 0.5 K/uL (0.0-0.8) 09/06/17 07:07 Eos # (Auto) 0.0 K/uL (0.0-0.7) 09/06/17 07:07 Baso # (Auto) 0.0 K/uL (0.0-0.2) 09/06/17 07:07 Neutrophils % (Manual) 94 % (50-75) H 09/05/17 07:18 Band Neutrophils % 1 % (0-2) 09/04/17 12:05 Lymphocytes % (Manual) 3 % (20-40) L 09/05/17 07:18 Monocytes % (Manual) 3 % (0-10) 09/05/17 07:18 Platelet Estimate Normal (NORMAL) 09/05/17 07:18 RBC Morphology Normal 09/05/17 07:18 pO2 14 mm/Hg (30-55) L 09/02/17 12:02 VBG pH 7.43 (7.32-7.43) 09/02/17 12:02 VBG pCO2 38 mmHg (40-60) L 09/02/17 12:02 VBG HCO3 23.6 mmol/L 09/02/17 12:02 VBG Total CO2 26.4 mmol/L (22-28) 09/02/17 12:02 VBG O2 Sat (Calc) 23.2 % (40-65) L 09/02/17 12:02 VBG Base Excess 1.0 mmol/L (0.0-2.0) 09/02/17 12:02 VBG Potassium 3.3 mmol/L (3.6-5.2) L 09/02/17 12:02 Sodium 135.0 mmol/l (132-148) 09/02/17 12:02 Chloride 101.0 mmol/L (98-107) 09/02/17 12:02 Glucose 81 mg/dl (65-105) 09/02/17 12:02 Lactate 1.2 mmol/L (0.7-2.1) 09/02/17 12:02 Sodium 138 mmol/L (132-148) 09/06/17 07:07 Potassium 4.5 mmol/L (3.6-5.2) 09/06/17 07:07 Chloride 103 mmol/L (98-107) 09/06/17 07:07 Carbon Dioxide 22 mmol/L (22-30) 09/06/17 07:07 Anion Gap 17 (10-20) 09/06/17 07:07 BUN 11 mg/dL (7-17) 09/06/17 07:07 Creatinine 0.7 mg/dL (0.7-1.2) 09/06/17 07:07 Est GFR ( Amer) > 60 09/06/17 07:07 Est GFR (Non-Af Amer) > 60 09/06/17 07:07 Random Glucose 127 mg/dL (65-105) H 09/06/17 07:07 Calcium 8.2 mg/dl (8.6-10.4) L 09/06/17 07:07 Total Bilirubin 0.2 mg/dL (0.2-1.3) 09/06/17 07:07 AST 28 U/L (14-36) 09/06/17 07:07 ALT 14 U/L (9-52) 09/06/17 07:07 Alkaline Phosphatase 54 U/L (38-126) 09/06/17 07:07 Total Protein 6.7 g/dL (6.3-8.3) 09/06/17 07:07 Albumin 3.2 g/dL (3.5-5.0) L 09/06/17 07:07 Globulin 3.5 gm/dL (2.2-3.9) 09/06/17 07:07 Albumin/Globulin Ratio 0.9 (1.0-2.1) L 09/06/17 07:07 Venous Blood Potassium 3.3 mmol/L (3.6-5.2) L 09/02/17 12:02 Urine Color Yellow (YELLOW) 09/02/17 11:45 Urine Clarity Hazy (Clear) 09/02/17 11:45 Urine pH 6.0 (5.0-8.0) 09/02/17 11:45 Ur Specific Lawn 1.024 (1.003-1.030) 09/02/17 11:45 Urine Protein 1+ mg/dL (NEGATIVE) H 09/02/17 11:45 Urine Glucose (UA) Normal mg/dL (Normal) 09/02/17 11:45 Urine Ketones 2+ mg/dL (NEGATIVE) H 09/02/17 11:45 Urine Blood 1+ (NEGATIVE) H 09/02/17 11:45 Urine Nitrate Negative (NEGATIVE) 09/02/17 11:45 Urine Bilirubin Negative (NEGATIVE) 09/02/17 11:45 Urine Urobilinogen Normal mg/dL (0.2-1.0) 09/02/17 11:45 Ur Leukocyte Esterase Neg Pauline/uL (Negative) 09/02/17 11:45 Urine WBC (Auto) 2 /hpf (0-5) 09/02/17 11:45 Urine RBC (Auto) 17 /hpf (0-3) H 09/02/17 11:45 Ur Squamous Epith Cells 9 /hpf (0-5) H 09/02/17 11:45 Urine HCG, Qual Negative (NEGATIVE) 09/02/17 11:45 Stool Occult Blood Positive (NEGATIVE) H 09/03/17 22:33 HIV 1&2 Antibody Screen Negative (NEGATIVE) 09/03/17 06:39 Influenza Typ A,B (EIA) Negative for flu a/b (NEGATIVE) 09/02/17 11:03 H.influenzae Type B Ag Negative (NEGATIVE) 09/04/17 16:04 Ur L.pneumophila Ag Negative (NEGATIVE) 09/04/17 16:04 N.meningitidis ACY/W135 Negative (NEGATIVE) 09/04/17 16:04 N.meningi B/E.coli K1 Ag Negative (NEGATIVE) 09/04/17 16:04 Grp A Beta Strep Ag Positive (NEGATIVE) H 09/02/17 11:03 Group B Strep Antigen Negative (NEGATIVE) 09/04/17 16:04 S. pneumoniae Antigen Negative (NEGATIVE) 09/04/17 16:04 - Hospital Course Hospital Course: On admission: "22 year old female with past medical history of bilateral carotid paraganglioma s/p radiation therapy, asthma and bipolar disorder presents to the ED complains of difficulty swallowing. Patient states she woke up yesterday morning with sore throat and non productive cough. Patient tried having some soup and realized that she cannot swallow well due to pain. Other associated symptoms include left ear pain, runny nose, shortness of breath, hoarseness of voice and fatigue. Patient reports that her daughter is recovering from a flu at home. Patient states her asthma is well controlled. She was never hospitalized and never intubated for asthma. Patient had radiation therapy at [facility] in 2010 for paraganglioma and never followed up afterwards because her neck never bothered her since. Patient denies having headache, chest pain, nausea, vomiting, or diarrhea." Hospital Course: Patient admitted for treatment of strep pharyngitis and evaluation of difficulty swallowing. Patient was evaluated by ENT Dr. Benavides. He suggested evaluation by specialist Dr. Carreon. No acute intervention planned for this admission. Patient also found with evidence of pneumonia on X-ray. This was confirmed with a chest CT scan which showed bilateral pneumonia in a pattern that was unusual for bacterial pneumonia. Instead, it was suspected that she had viral pneumonia, and so Tamiflu was started given her recent exposure to sick contacts. Blood cultures have been negative thus far. Patient treated with Zosyn and Clindamycin. Patient was discharged with Clindamycin and Augmentin for antibiotic coverage. Patient showed clinical improvement. She was initially short of breath with labored breathing when she would walk around the hallways. At the date of discharge, patient was ambulating without difficulty or dyspnea. This is a summary of the hospital course. For more information, refer to the medical records. Discharge Exam - Additional Findings Additional findings: - Constitutional Appears: Non-toxic - Head Exam Head Exam: ATRAUMATIC, NORMAL INSPECTION - Eye Exam Eye Exam: EOMI, Normal appearance Pupil Exam: NORMAL ACCOMODATION - ENT Exam ENT Exam: Mucous Membranes Moist Additional comments: Bilateral tonsils and uvula englarged, erythematous. Improvement in tonsillar exudates noted. - Neck Exam Additional comments: surgical scar located at right anterior neck - Respiratory Exam Respiratory Exam: Clear to Auscultation Bilateral, NORMAL BREATHING PATTERN. absent: Wheezes, Respiratory Distress - Cardiovascular Exam Cardiovascular Exam: RRR, +S1, +S2 - GI/Abdominal Exam GI & Abdominal Exam: Normal Bowel Sounds, Soft. absent: Tenderness - Extremities Exam Extremities exam: Positive for: normal inspection - Neurological Exam Neurological exam: Alert, Oriented x3 - Psychiatric Exam Psychiatric exam: Normal Affect, Normal Mood - Skin Skin Exam: Dry, Warm Discharge Plan - Discharge Medications Prescriptions: Albuterol 0.083% [Albuterol 0.083% Inhal Windy (2.5 mg/3 ml) UD] 2.5 mg IH Q4H PRN 14 Days neb PRN Reason: Shortness Of Breath Amoxicillin/Clavulanate [Augmentin 875 MG-125 MG] 1 tab PO BID 7 Days tab Clindamycin [Cleocin] 300 mg PO TID 4 Days cap Methylprednisolone [Medrol Dose Pack (21 tabs)] 4 mg PO DAILY #21 mg Oseltamivir [Tamiflu] 6 mg PO BID 3 Days ml Promethazine DM [Phenergan DM Syrup] 5 ml PO Q4H PRN 3 Days cup PRN Reason: cough, nausea - Follow Up Plan Condition: STABLE Disposition: HOME/ ROUTINE Instructions: Clindamycin (Systemic), Pneumonia, Adult (DC), Albuterol, Amoxicillin and Clavulanate, Methylprednisolone, Oseltamivir, Promethazine Additional Instructions: Please follow up with your primary doctor within 1-2 weeks. Please follow up with the ENT specialist Dr. Benavides within 1-2 weeks. Please resume your home medications. Please take Clindamycin 300 mg three times daily for 4 days. Please take Augmentin 875/125 mg twice daily for 7 days. Please take Tamiflu twice daily for 3 days. Please take the albuterol nebulizer every 4 hours only if needed for shortness of breath. Please take the Phenergan cough syrup as needed. Please take the Medrol dosepak as directed on the box. If there are any new or worsening symptoms, please go to the nearest emergency room. Referrals: Rick Benavides MD [Staff Provider] - Alize Baker MD [Medical Doctor] - <Leonardo Argueta - Last Filed: 09/06/17 15:44> Provider - Provider Date of Admission: 09/02/17 16:58 Attending physician: Leonardo Argueta DO Hospital Course - Lab Results Lab Results: Micro Results 09/02/17 11:25 Blood Blood Culture - Preliminary NO GROWTH AFTER 4 DAYS 09/02/17 11:10 Blood Blood Culture - Preliminary NO GROWTH AFTER 4 DAYS Most Recent Lab Values WBC 12.2 K/uL (4.8-10.8) H 09/06/17 07:07 RBC 3.61 Mil/uL (3.80-5.20) L 09/06/17 07:07 Hgb 11.1 g/dL (11.0-16.0) 09/06/17 07:07 Hct 32.6 % (34.0-47.0) L 09/06/17 07:07 MCV 90.3 fL (81.0-99.0) 09/06/17 07:07 MCH 30.8 pg (27.0-31.0) 09/06/17 07:07 MCHC 34.1 g/dL (33.0-37.0) 09/06/17 07:07 RDW 13.0 % (11.5-14.5) 09/06/17 07:07 Plt Count 280 K/uL (130-400) 09/06/17 07:07 MPV 8.8 fL (7.2-11.7) 09/06/17 07:07 Neut % (Auto) 83.2 % (50.0-75.0) H 09/06/17 07:07 Lymph % (Auto) 12.2 % (20.0-40.0) L 09/06/17 07:07 [place] % (Auto) 4.3 % (0.0-10.0) 09/06/17 07:07 Eos % (Auto) 0.0 % (0.0-4.0) 09/06/17 07:07 Baso % (Auto) 0.3 % (0.0-2.0) 09/06/17 07:07 Neut # (Auto) 10.1 K/uL (1.8-7.0) H 09/06/17 07:07 Lymph # (Auto) 1.5 K/uL (1.0-4.3) 09/06/17 07:07 [place] # (Auto) 0.5 K/uL (0.0-0.8) 09/06/17 07:07 Eos # (Auto) 0.0 K/uL (0.0-0.7) 09/06/17 07:07 Baso # (Auto) 0.0 K/uL (0.0-0.2) 09/06/17 07:07 Neutrophils % (Manual) 94 % (50-75) H 09/05/17 07:18 Band Neutrophils % 1 % (0-2) 09/04/17 12:05 Lymphocytes % (Manual) 3 % (20-40) L 09/05/17 07:18 Monocytes % (Manual) 3 % (0-10) 09/05/17 07:18 Platelet Estimate Normal (NORMAL) 09/05/17 07:18 RBC Morphology Normal 09/05/17 07:18 pO2 14 mm/Hg (30-55) L 09/02/17 12:02 VBG pH 7.43 (7.32-7.43) 09/02/17 12:02 VBG pCO2 38 mmHg (40-60) L 09/02/17 12:02 VBG HCO3 23.6 mmol/L 09/02/17 12:02 VBG Total CO2 26.4 mmol/L (22-28) 09/02/17 12:02 VBG O2 Sat (Calc) 23.2 % (40-65) L 09/02/17 12:02 VBG Base Excess 1.0 mmol/L (0.0-2.0) 09/02/17 12:02 VBG Potassium 3.3 mmol/L (3.6-5.2) L 09/02/17 12:02 Sodium 135.0 mmol/l (132-148) 09/02/17 12:02 Chloride 101.0 mmol/L (98-107) 09/02/17 12:02 Glucose 81 mg/dl (65-105) 09/02/17 12:02 Lactate 1.2 mmol/L (0.7-2.1) 09/02/17 12:02 Sodium 138 mmol/L (132-148) 09/06/17 07:07 Potassium 4.5 mmol/L (3.6-5.2) 09/06/17 07:07 Chloride 103 mmol/L (98-107) 09/06/17 07:07 Carbon Dioxide 22 mmol/L (22-30) 09/06/17 07:07 Anion Gap 17 (10-20) 09/06/17 07:07 BUN 11 mg/dL (7-17) 09/06/17 07:07 Creatinine 0.7 mg/dL (0.7-1.2) 09/06/17 07:07 Est GFR ( Amer) > 60 09/06/17 07:07 Est GFR (Non-Af Amer) > 60 09/06/17 07:07 Random Glucose 127 mg/dL (65-105) H 09/06/17 07:07 Calcium 8.2 mg/dl (8.6-10.4) L 09/06/17 07:07 Total Bilirubin 0.2 mg/dL (0.2-1.3) 09/06/17 07:07 AST 28 U/L (14-36) 09/06/17 07:07 ALT 14 U/L (9-52) 09/06/17 07:07 Alkaline Phosphatase 54 U/L (38-126) 09/06/17 07:07 Total Protein 6.7 g/dL (6.3-8.3) 09/06/17 07:07 Albumin 3.2 g/dL (3.5-5.0) L 09/06/17 07:07 Globulin 3.5 gm/dL (2.2-3.9) 09/06/17 07:07 Albumin/Globulin Ratio 0.9 (1.0-2.1) L 09/06/17 07:07 Venous Blood Potassium 3.3 mmol/L (3.6-5.2) L 09/02/17 12:02 Urine Color Yellow (YELLOW) 09/02/17 11:45 Urine Clarity Hazy (Clear) 09/02/17 11:45 Urine pH 6.0 (5.0-8.0) 09/02/17 11:45 Ur Specific Lawn 1.024 (1.003-1.030) 09/02/17 11:45 Urine Protein 1+ mg/dL (NEGATIVE) H 09/02/17 11:45 Urine Glucose (UA) Normal mg/dL (Normal) 09/02/17 11:45 Urine Ketones 2+ mg/dL (NEGATIVE) H 09/02/17 11:45 Urine Blood 1+ (NEGATIVE) H 09/02/17 11:45 Urine Nitrate Negative (NEGATIVE) 09/02/17 11:45 Urine Bilirubin Negative (NEGATIVE) 09/02/17 11:45 Urine Urobilinogen Normal mg/dL (0.2-1.0) 09/02/17 11:45 Ur Leukocyte Esterase Neg Pauline/uL (Negative) 09/02/17 11:45 Urine WBC (Auto) 2 /hpf (0-5) 09/02/17 11:45 Urine RBC (Auto) 17 /hpf (0-3) H 09/02/17 11:45 Ur Squamous Epith Cells 9 /hpf (0-5) H 09/02/17 11:45 Urine HCG, Qual Negative (NEGATIVE) 09/02/17 11:45 Stool Occult Blood Positive (NEGATIVE) H 09/03/17 22:33 HIV 1&2 Antibody Screen Negative (NEGATIVE) 09/03/17 06:39 Influenza Typ A,B (EIA) Negative for flu a/b (NEGATIVE) 09/02/17 11:03 H.influenzae Type B Ag Negative (NEGATIVE) 09/04/17 16:04 Ur L.pneumophila Ag Negative (NEGATIVE) 09/04/17 16:04 N.meningitidis ACY/W135 Negative (NEGATIVE) 09/04/17 16:04 N.meningi B/E.coli K1 Ag Negative (NEGATIVE) 09/04/17 16:04 Grp A Beta Strep Ag Positive (NEGATIVE) H 09/02/17 11:03 Group B Strep Antigen Negative (NEGATIVE) 09/04/17 16:04 S. pneumoniae Antigen Negative (NEGATIVE) 09/04/17 16:04 Attending/Attestation - Attestation I have personally seen and examined this patient.: Yes I have fully participated in the care of the patient.: Yes I have reviewed all pertinent clinical information, including history, physical exam and plan: Yes Notes (Text): Medical attending: Patient was seen and examined by me, agrees the above note by the medical transport specialist. The patient today looked much better than previous days. This is the first day with her where we had her walk with us and we've observed her appearing stable. She did not look short of breath today. She was able to speak to us in full sentences when she was walking around. So this is much better than previous days. As mentioned before retreating her for pneumonia as well as the tonsillitis. She initially came in with the biggest concern being tonsillitis but really the main problem was the pneumonia that she had. Her white blood cell count has decreased. She's no longer having these high fevers. We will let her go with oral antibiotics. She'll need to take prescriptions for her asthma exacerbations, antibiotics, cough medication, and Tamiflu. (With regards to Tamiflu she never tested influenza positive but it's possible that her family members could have the flu as well.) Thank you very much, Leonardo Argueta
[2017-09-06] MEDS: MethylPREDNISolone 40 mg Vial IVP SCH (12:00)
== END 2017-09-06 14:15 | disposition home or self-care (01) | DRG 90 ==
LOC: C.ER 10:44 → C.9E 12:55 → C.6T 15:01 → C.9E 16:20 → OBSVTOIN 16:58 → C.3T 22:52
PROVIDERS: ADMIT Hospitalist; ATTEND Hospitalist
DX: J12.9 Viral pneumonia, unspecified (principal); D48.7 Neoplasm of uncertain behavior of other specified sites; F31.9 Bipolar disorder, unspecified; J02.0 Streptococcal pharyngitis; J34.2 Deviated nasal septum; J45.909 Unspecified asthma, uncomplicated; Z72.0 Tobacco use

== ENCOUNTER 2017-10-21 20:02 | Emergency (ER) | payer MEDICAID ==
--- NOTE | 2017-10-21 20:23 | C.PDOC ---
History Of Present Illness Patient presents to the ER because mother states she has been found acting weird , with superficial scratches over her right forearm, and occasionally making weird cat noises. Patient is not answering any questions. Time Seen by Provider: 10/21/17 20:22 Chief Complaint (Nursing): Psychiatric Evaluation History Per: Family History/Exam Limitations: no limitations Onset/Duration Of Symptoms: Days Current Symptoms Are (Timing): Still Present Suicide/Self Injury Attempted (Context): None Modifying Factor(s): None Severity: None Pain Scale Rating Of: 0 Involuntary Hold By: None Recent travel outside of the [place]: No Past Medical History Reviewed: Historical Data, Nursing Documentation, Vital Signs Vital Signs: Last Vital Signs Temp 97.5 F L 10/22/17 06:05 Pulse 69 10/22/17 06:05 Resp 16 10/22/17 06:05 BP 102/55 L 10/22/17 06:05 Pulse Ox 100 10/22/17 06:05 - Medical History PMH: Asthma, Bipolar Disorder, Schizophrenia ("schizo effective disorder") Family History: States: No Known Family Hx - Social History Hx Tobacco Use: Yes Hx Alcohol Use: Yes Hx Substance Use: No - Immunization History Hx Tetanus Toxoid Vaccination: No Hx Influenza Vaccination: No Hx Pneumococcal Vaccination: No Review Of Systems Review Of Systems: ROS cannot be obtained secondary to pt's inabilty to answer questions. (Refuses to answer) Physical Exam - Physical Exam Appears: Non-toxic Skin: Warm, Dry Head: Normacephalic Oral Mucosa: Moist Chest: Symmetrical, No Tenderness Cardiovascular: Rhythm Regular Respiratory: No Rales, No Rhonchi, No Wheezing Gastrointestinal/Abdominal: Soft, No Tenderness Neurological/Psych: Oriented x3 ED Course And Treatment - Laboratory Results Result Diagrams: 10/21/17 20:36 10/21/17 20:36 ECG: Interpreted By Me, Viewed By Me ECG Rhythm: Sinus Rhythm (84), Nonspecific Changes O2 Sat by Pulse Oximetry: 100 (Room air) Pulse Ox Interpretation: Normal - Radiology CXR: Interpreted by Me, Viewed By Me CXR Interpretation: No: Infiltrates, Fracture, Pnemothorax Progress Note: EKG, blood work, CXR, and urinalysis ordered. Geodon administered. Crisis notified. 3am awaiting placement, as thert are no [facility] psych beds. vitals stable Disposition Counseled Patient/Family Regarding: Studies Performed, Diagnosis - Disposition Referrals: Aquiles BARNETT,Brian Maier MD [Primary Care Provider] - Disposition Time: 20:23 Condition: FAIR Forms: [facility] (Bermudian) - Clinical Impression Clinical Impression: Schizophrenia, unspecified - Scribe Statement The provider has reviewed the documentation as recorded by the Scribe Tc Torres All medical record entries made by the Scribe were at my direction and personally dictated by me. I have reviewed the chart and agree that the record accurately reflects my personal performance of the history, physical exam, medical decision making, and the department course for this patient. I have also personally directed, reviewed, and agree with the discharge instructions and disposition. Physician Patient Turnover Patient Signed Over To: Anthony Murdock Handoff Comments: pending bed availability
[2017-10-21 20:44] LABS: BASO % 0.4 % (0.0-2.0); EOS # 0.2 K/uL (0.0-0.7); EOS % 2.2 % (0.0-4.0); HEMOGLOBIN 13.1 g/dL (11.0-16.0); LYMPH # 2.6 K/uL (1.0-4.3); LYMPH % 25.9 % (20.0-40.0); MEAN CELL VOLUME 89.1 fL (81.0-99.0); MEAN CORPUSCULAR HEMOGLOBIN 30.8 pg (27.0-31.0); MEAN CORPUSCULAR HGB CONC 34.5 g/dL (33.0-37.0); MEAN PLATELET VOLUME 8.8 fL (7.2-11.7); MONO # 0.9 K/uL (0.0-0.8); MONO % 8.9 % (0.0-10.0); NEUT # 6.2 K/uL (1.8-7.0); NEUT % 62.6 % (50.0-75.0); NRBC % 0.1 % (0.0-2.0); RBC 4.27 Mil/uL (3.80-5.20); RED CELL DISTRIBUTION WIDTH 13.2 % (11.5-14.5); WHITE BLOOD COUNT 9.9 K/uL (4.8-10.8)
[2017-10-21 20:56] LABS: ALB/GLOB RATIO 1.1 (1.0-2.1); ALBUMIN 3.9 g/dL (3.5-5.0); ALT/SGPT 7 U/L (9-52); AST/SGOT 21 U/L (14-36); BLOOD UREA NITROGEN 18 mg/dL (7-17); CALCIUM 8.9 mg/dl (8.6-10.4); GFR AFRICAN-AMERICAN > 60; GFR NON-AFRICAN AMERICAN > 60
[2017-10-21 22:03] LABS: SQUAMOUS EPITHIAL 4 /hpf (0-5); URINE BILIRUBIN NEGATIVE (NEGATIVE); URINE BLOOD NEGATIVE (NEGATIVE); URINE CLARITY Clear (Clear); URINE COLOR Straw (YELLOW); URINE GLUCOSE (UA) NORMAL (Normal); URINE LEUKOCYTE ESTERASE NEG Leu/uL (Negative); URINE PROTEIN NEGATIVE (NEGATIVE); URINE UROBILINOGEN NORMAL mg/dL (0.2-1.0)
[2017-10-21 22:25] LABS: BARBITURATES, UR NEGATIVE (NEGATIVE); BENZODIAZEPINES, UR NEGATIVE (NEGATIVE); OPIATES, UR NEGATIVE (NEGATIVE); PHENCYCLIDINE, UR NEGATIVE (NEGATIVE)
--- NOTE | 2017-10-22 08:18 | RAD ---
Chest x-ray single frontal view History: Detox. Comparison: 09/02/2017 Findings: No focal infiltrate or effusion. Heart size within normal limits. Impression No focal infiltrate or effusion.
--- NOTE | 2017-10-22 11:01 | PCM.PSYCH ---
Initial Psychiatric Evaluation - Initial Psychiatric Evaluation Type of Admission: Voluntary Legal Status: Capacity Chief Complaint (in patient's own words): I want to leave.' History of Present Illness and Precipitating Events: Pt. is a 22 y/o AA female that was transported to ED because of bizarre behavior. As per the ED report, her mother called 911, as pt was banging her head against the wall, and scratching her arms. Pt. rolled her eyes back and was sticking her tongue out to make movement with her tongue. Pt. was irritable and would not give a lot of information. She remained disorganized and internally preoccupied, and was responding to internal stimuli. Pt. would look up and then stared at the wall. She appeared paranoid and delusional. Pt. became defensive because she thought her son was going to be removed from the home. Pt. reported that she was attending [facility] day program. PES called [facility] and they reported that Pt. has not been there in over a year. Pt. could not remember the last time she was hospitalized. Pt. made reference that she is possessed. Pt. admits to past history of auditory and visual hallucinations. Pt. denies any S/H ideations. She also reports reports at times depressed mood, feelings of hopelessness and helplessness. She denies any substance abuse. PMH None reported Current Medications: Active Medications Generic Name Dose Route Start Last Admin Trade Name Freq PRN Reason Stop Dose Admin Lorazepam 2 mg 10/22/17 10:02 Ativan IM ONCE PRN Anxiety Ziprasidone 20 mg 10/22/17 10:02 Geodon Inj IM ONCE PRN Agitation Past Psychiatric History - Past Psychiatric History Previous Treatment History: Inpatient Pertinent Medical Hx (Current Medical&Sleep Prob, Allergies): Allergies Allergy/AdvReac Type Severity Reaction Status Date / Time No Known Allergies Allergy Unverified 10/21/17 20:11 QUEtiapine [SEROquel] 50 mg PO HS 09/02/17 Review of Systems - Review of Systems All systems: reviewed and no additional remarkable complaints except - Psychiatric Psychiatric: Anxiety, Irritability, Paranoia, Suicidal Ideation Mental Status Examination - Personal Presentation Personal Presentation: Looks stated age - Affect Affect: Broad - Motor Activity Motor Activity: Violent, Psychomotor Agitation - Reliability in Providing Information Reliability in Providing Information: Poor, due to alteration in thoughts, Poor , due to altered mood - Speech Speech: Disorganized - Mood Mood: Depressed, Anxious - Formal Thought Process Formal Thought Process: Hallucinations, Delusions, Paranoia, Loosening of associations - Obsessions/Compulsions Obsessions: No Compulsions: No - Cognitive Functions Orientation: Person, Place, Situation, Time Sensorium: Alert Attention/Concentration: Attentive Abstract Thinking: [place] Estimate of Intelligence: Below average Judgement: Imparied, as evidence by: Poor judgement, Imparied, as evidence by: Lack of insight into illness - Risk Risk: Suicidal, Diminished functioning - Strength & Assets Inventory Strength & Assets Inventory: Family support DSM 5 DX - DSM 5 DSM 5 Diagnosis: Bipolar disorder mixed severe with psychotic features R/O Schizoaffective disorder bipolar type - Recommended/Plan of Treatment Treatment Recommendations and Plan of Treatment: Bipolar disorder mixed severe with psychotic features R/O Schizoaffective disorder bipolar type CBT Psychoeducation Supportive therapy, group therapy, individual therapy Haldol 5 mg PO BID Cogentin 1 mg PO BID Haldol 5 mg po Q8 hr prn Trazodone 50 mg by mouth daily at bedtime - Smoking Cessation Smoking Cessation Initiated: No
--- NOTE | 2017-10-22 16:03 | CARD ---
APPROVED REPORT EKG Measurement Heart [id number] <Conclusion> Normal sinus rhythm Normal ECG
[2017-10-22 16:56] VITALS: TEMP 98
[2017-10-22 20:38] VITALS: RESP 18
[2017-10-23 00:06] VITALS: BP 110/70; PULSE 64; O2SAT 98
== END 2017-10-23 00:04 | disposition short-term general hospital (02) ==
LOC: C.ER 20:02 → SUPCPDRO 20:02 → C.ER 10-23 00:04
DX: F31.64 Bipolar disorder, current episode mixed, severe, with psychotic features (principal); J45.909 Unspecified asthma, uncomplicated; F17.210 Nicotine dependence, cigarettes, uncomplicated
CPT/HCPCS: 71045; 80053; 80320; 80324; 80345; 80346; 80349; 80353; 80358; 80361; 81001; 83992; 84703; 85025; 93005; 96372; 99285; J2060; J3486

== ENCOUNTER → 2017-11-04 14:30 | Emergency (ER) | payer MEDICAID | END | disposition left against medical advice (07) | LOC: C.ER 14:30 | DX: Z02.89 Encounter for other administrative examinations (principal); Z00.00 Encounter for general adult medical examination without abnormal findings ==

== ENCOUNTER 2018-03-02 14:51 | Emergency (ER) | payer MEDICAID ==
--- NOTE | 2018-03-02 15:59 | C.PDOC ---
History Of Present Illness 23 y/o F c PMHx asthma and schizoaffective disorder p/w "not feeling well" x 2 days. Patient states she suspects it because she has not taken her cogentin in 2 days. She states she has not picked it up from the pharmacy in time before she ran out of her previous prescription. She reports feeling groggy, weak, with lower abdominal pain that began today. She states she is on her period which is normal time and flow. She states earlier today, she was told she was tremulous by her boyfriend but she doesn't quite remember this. She states currently feels fine and would like to go home. Denies fever, chest pain, dyspnea, current abodminal pain, dysuria, vomiting. Time Seen by Provider: 03/02/18 15:20 Chief Complaint (Nursing): Abdominal Pain Past Medical History Vital Signs: Last Vital Signs Temp 97.7 F 03/02/18 14:53 Pulse 90 03/02/18 14:53 Resp 18 03/02/18 14:53 BP 129/83 03/02/18 14:53 Pulse Ox 100 03/02/18 14:53 - Medical History PMH: Asthma, Bipolar Disorder, Schizophrenia ("schizo effective disorder") Denies: Diabetes, Hepatitis, HIV, HTN, Chronic Kidney Disease, Seizures, Sexually Transmitted Disease Family History: States: Unknown Family Hx - Social History Hx Tobacco Use: Yes Hx Alcohol Use: No Hx Substance Use: No - Immunization History Hx Tetanus Toxoid Vaccination: No Hx Influenza Vaccination: No Hx Pneumococcal Vaccination: No Review Of Systems Except As Marked, All Systems Reviewed And Found Negative. Constitutional: Negative for: Fever Gastrointestinal: Negative for: Vomiting Physical Exam - Physical Exam Additional Physical Exam Comments: Gen: NAD Head: NC Eyes: No icterus ENT: MMM Neck: Supple Chest: No clavicular tenderness CV: Regular rate lungs: CTA b/l Abd: Soft, NT Back: No CVA tenderness Extremities: No edema Skin: No rash Neuro: Alert, answers questions appropriately ED Course And Treatment O2 Sat by Pulse Oximetry: 100 Against Medical Advice - AMA Patient Left Against Medical Advice: The patient declines admission to the hospital and wishes to leave the Emergency Department. This action is against my medical advice. This decision was made with informed refusal. The patient was told that admission to the hospital is necessary. Explanation of the reasons why were discussed. The risks of leaving were explained to the patient and include, but are not limited to, worsening of known or currently unknown conditions, permanent disability and from undiagnosed or untreated conditions. The patient has the capacity to make this informed decision and understands my explanation of the current medical problem and risks of leaving. The patient voluntarily accepts these risks and signed an AMA form documenting our conversation. The patient was given the opportunity to ask questions and reconsider. The patient was encouraged to return to the Emergency Department at any time for further care. Medical Decision Making Medical Decision Making: I offered patient to stay in ED and be evaluated for her symptoms that have no known cause at this time. She wished to leave AMA and see her doctor on Sunday. I informed her that she could return at any time. Disposition - Disposition Referrals: Alize Baker MD [Medical Doctor] - Disposition: AGAINST MEDICAL ADVICE Disposition Time: 15:57 Condition: UNKNOWN Instructions: Leaving Against Medical Advice - Clinical Impression Clinical Impression: Left against medical advice
[2018-03-02 16:18] VITALS: BP 110/79; PULSE 74; RESP 14; TEMP 97.9; O2SAT 96
== END 2018-03-02 16:17 | disposition left against medical advice (07) ==
LOC: C.ER 14:51
DX: Z53.21 Procedure and treatment not carried out due to patient leaving prior to being seen by health care provider (principal); R10.30 Lower abdominal pain, unspecified; F25.9 Schizoaffective disorder, unspecified; Z72.0 Tobacco use

== ENCOUNTER 2018-09-13 16:39 | Observation (INO) | payer MEDICAID ==
--- NOTE | 2018-09-13 17:11 | C.PDOC ---
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 Patient states that it hasn't happened before and rates it as a 10/10. Patient also reports intermittent photophobia, slight CP, blurry vision, and lightheadedness. She reports taking 2 Excedrin's at 2am and 12pm today with no improvement and states that her headache is worse with neck flexion and standing. She states that she was at her oncologist Dr. Bentley today and he advised her to go to the ED if her pain worsened. She also recently saw her PMD for tonsillitis, which she was given a z pack for. She denies any new trauma, fever, chills, nausea, vomiting, SOB, sick contacts. <Aiden Hickman - Last Filed: 09/13/18 18:29> History Per: Patient History/Exam Limitations: no limitations Onset/Duration Of Symptoms: Days (1) Current Symptoms Are (Timing): Still Present Associated Symptoms: Photophobia, Blurred Vision. denies: Nausea, Vomiting Recent travel outside of the [place]: No Additional History Per: Patient <Aiden Hickman - Last Filed: 09/13/18 18:29> <Jose M Crespo - Last Filed: 09/13/18 21:21> Chief Complaint (Nursing): Headache Past Medical History Reviewed: Historical Data, Nursing Documentation, Vital Signs Vital Signs: Last Vital Signs Temp 97.5 F L 09/13/18 16:45 Pulse 92 H 09/13/18 16:45 Resp 18 09/13/18 16:45 BP 110/74 09/13/18 16:45 Pulse Ox 100 09/13/18 17:10 Surgical History: No Surg Hx <Aiden Hickman - Last Filed: 09/13/18 18:29> Vital Signs: Last Vital Signs Temp 97.5 F L 09/13/18 16:45 Pulse 92 H 09/13/18 16:45 Resp 18 09/13/18 16:45 BP 110/74 09/13/18 16:45 Pulse Ox 100 09/13/18 16:45 - Medical History PMH: Asthma, Bipolar Disorder, Schizophrenia ("schizo effective disorder") Denies: Diabetes, Hepatitis, HIV, HTN, Chronic Kidney Disease, Seizures, Sexually Transmitted Disease Family History: States: Unknown Family Hx - Social History Hx Tobacco Use: Yes Hx Alcohol Use: No (Ex Drinker) Hx Substance Use: No - Immunization History Hx Tetanus Toxoid Vaccination: No Hx Influenza Vaccination: No Hx Pneumococcal Vaccination: No <Jose M Crespo - Last Filed: 09/13/18 21:21> Review Of Systems Constitutional: Positive for: Other (lightheadedness) Eyes: Positive for: Vision Change Cardiovascular: Positive for: Chest Pain (slight) Respiratory: Negative for: Shortness of Breath Musculoskeletal: Positive for: Neck Pain (throbbing) Neurological: Positive for: Headache (throbbing) <Aiden Hickman - Last Filed: 09/13/18 18:29> Constitutional: Positive for: Other Musculoskeletal: Positive for: Neck Pain Neurological: Positive for: Headache <Jose M Crespo - Last Filed: 09/13/18 21:21> Physical Exam - Physical Exam Appears: Non-toxic, No Acute Distress Skin: Warm, Dry Head: Atraumatic, Normacephalic Eye(s): bilateral: Normal Inspection, PERRL, EOMI Ear(s): Bilateral: Normal Throat: Normal Neck: Decreased ROM, Other (pain with neck flexion) Chest: Symmetrical, No Deformity Cardiovascular: No Murmur, Other (tachycardic) Respiratory: Normal Breath Sounds, No Rales, No Rhonchi, No Wheezing Gastrointestinal/Abdominal: Soft, No Tenderness, No Distention Neurological/Psych: Oriented x3 <Aiden Hickman - Last Filed: 09/13/18 18:29> - Physical Exam Neck: Other Cardiovascular: Other <Jose M Crespo - Last Filed: 09/13/18 21:21> ED Course And Treatment Pulse Ox Interpretation: Normal <Aiden Hickman - Last Filed: 09/13/18 18:29> - Laboratory Results Result Diagrams: 09/13/18 18:30 09/13/18 18:30 O2 Sat by Pulse Oximetry: 100 - CT Scan/US CAT Neck Other Rad Studies (CT/US): Read By Radiologist, Radiology Report Reviewed CT/US Interpretation: EXAM: CT Neck without Intravenous Contrast. CLINICAL HISTORY: History of paraganglioma of right carotid. TECHNIQUE: Axial computed tomography images of the neck without intravenous contrast. Sagittal and coronal reformatted images were generated. 0.00 mGy-cm. CONTRAST: Without. COMPARISON: None provided. FINDINGS: Right cervical postsurgical changes are seen consistent with a history. PHARYNX: Unremarkable appearance of the nasopharynx, oropharyx, and hypopharynx. No pharyngeal mucosal based mass lesions. LARYNX: Normal appearance of the larynx. Unremarkable epiglottis. RETROPHARYNGEAL SPACE: No retropharyngeal soft tissue swelling or gas. SALIVARY GLANDS: No salivary gland abnormality evident. Unremarkable appearance of the parotid, submandibular, and sublingual glands. LYMPH NODES: No significant lymphadenopathy. THYROID: The thyroid gland is unremarkable. No nodule is evident. BONES: No acute osseous abnormality. No aggressive appearing osseous lesion. IMPRESSION: Right cervical postsurgical changes are seen consistent with a history. Unremarkable CT neck otherwise. CT Head Other Rad Studies (CT/US): Read By Radiologist, Radiology Report Reviewed CT/US Interpretation: EXAM: CT Head without Intravenous Contrast. CLINICAL HISTORY: Headache. TECHNIQUE: Axial computed tomography images of the head/brain without intravenous contrast. 0.00 mGy-cm. COMPARISON: None provided. FINDINGS: BRAIN. No acute intraparenchymal hemorrhage. No mass lesion. No CT evidence for acute territorial infarct. No midline shift or extra- axial collections. VENTRICLES: No hydrocephalus. ORBITS: The orbits are unremarkable. SINUSES AND MASTOIDS: The paranasal sinuses and mastoid air cells are clear. BONES: No fracture. SOFT TISSUES: Unremarkable. IMPRESSION: No acute intracranial abnormality. <Jose M Crespo - Last Filed: 09/13/18 21:21> Medical Decision Making Medical Decision Making: Plan: CAT Head CAT Neck Labs POC Urine Urinalysis Tylenol 975 mg PO Benadryl 25mg IVP Reglan 10mg IVP IV Fluids <Aiden Hickman - Last Filed: 09/13/18 18:29> Disposition <Aiden Hickman - Last Filed: 09/13/18 18:29> Discussed With : Arsenio Marrero Doctor Will See Patient In The: Hospital - Disposition Disposition Time: 20:40 <Jose M Crespo - Last Filed: 09/13/18 21:21> - Disposition Disposition: HOSPITALIZED Condition: STABLE - Clinical Impression Clinical Impression: Headache, Meningitis, Paraganglioma - PA / AUDIT CLERK / Resident Statement MD/DO has examined the patient and agrees with the treatment plan. - Scribe Statement The provider has reviewed the documentation as recorded by the Frank Gannon All medical record entries made by the Trishaibashia were at my direction and personally dictated by me. I have reviewed the chart and agree that the record accurately reflects my personal performance of the history, physical exam, medical decision making, and the department course for this patient. I have also personally directed, reviewed, and agree with the discharge instructions and disposition. <Aiden Hickman - Last Filed: 09/13/18 18:29>
[2018-09-13] MEDS ORDERED: DiphenhydrAMINE 50 mg/ml Inj IVP STA (18:18)
[2018-09-13] MEDS ORDERED: Sodium Chloride 0.9% 1,000 ML IV ONE (18:20)
[2018-09-13 18:34] LABS: BASO # 0.1 K/uL (0.0-0.2); BASO % 0.5 % (0.0-2.0); EOS # 0.1 K/uL (0.0-0.7); EOS % 0.9 % (0.0-4.0); HEMOGLOBIN 12.9 g/dL (11.0-16.0); LYMPH # 5.6 K/uL (1.0-4.3); LYMPH % 37.3 % (20.0-40.0); MEAN CELL VOLUME 90.5 fL (81.0-99.0); MEAN CORPUSCULAR HEMOGLOBIN 30.2 pg (27.0-31.0); MEAN CORPUSCULAR HGB CONC 33.3 g/dL (33.0-37.0); MEAN PLATELET VOLUME 8.2 fL (7.2-11.7); MONO # 1.6 K/uL (0.0-0.8); MONO % 10.4 % (0.0-10.0); NEUT # 7.7 K/uL (1.8-7.0); NEUT % 50.9 % (50.0-75.0); NRBC % 0.1 % (0.0-2.0); RBC 4.27 Mil/uL (3.80-5.20); RED CELL DISTRIBUTION WIDTH 12.8 % (11.5-14.5)
[2018-09-13 18:36] LABS: WHITE BLOOD COUNT 15.1 K/uL (4.8-10.8)
[2018-09-13] MEDS ORDERED: DiphenhydrAMINE 50 mg/ml Inj ONE (18:39)
[2018-09-13] MEDS ORDERED: Sodium Chloride 0.9% 1,000 ML ONE (18:40)
[2018-09-13 18:47] LABS: ALB/GLOB RATIO 1.3 (1.0-2.1); ALBUMIN 4.1 g/dL (3.5-5.0); ALT/SGPT 8 U/L (9-52); AST/SGOT 20 U/L (14-36); BLOOD UREA NITROGEN 24 mg/dL (7-17); CALCIUM 9.1 mg/dl (8.6-10.4); GFR NON-AFRICAN AMERICAN 55
[2018-09-13 18:49] LABS: SQUAMOUS EPITHIAL 6 /hpf (0-5); URINE BILIRUBIN NEGATIVE (NEGATIVE); URINE BLOOD NEGATIVE (NEGATIVE); URINE CALCIUM OXALATE CRYSTALS MANY /hpf (<OCC); URINE CLARITY Hazy (Clear); URINE COLOR Yellow (YELLOW); URINE GLUCOSE (UA) NORMAL (Normal); URINE LEUKOCYTE ESTERASE TRACE Leu/uL (Negative); URINE PROTEIN NEGATIVE (NEGATIVE); URINE UROBILINOGEN NORMAL mg/dL (0.2-1.0)
[2018-09-13] MEDS ORDERED: cefTRIAXone 2 GM IN NS 2 GM/100 ML BAG IVPB STA (20:16)
--- NOTE | 2018-09-13 21:03 | C.PDOC ---
History Of Present Illness Patient is a 23 year old female, with a PMHx of schizoaffective disorder, asthma, bipolar disorder, paraganglioma of carotids in 2010 s/p attempted removal and radiation in 2010, who presents to the ED c/o a frontal "throbbing" headache and intermittent throbbing of the back of the neck since yesterday. Patient states that she hasn't experienced this pain before and rates it as a 10/10. Patient also reports intermittent photophobia, slight CP, blurry vision, and lightheadedness. She reports taking 2 Excedrin's at 2am and 12pm today with no improvement and states that her headache is worse with neck flexion and standing. She states that she was at her oncologist Dr. Bentley today and he advised her to go to the ED if her pain worsened. She also recently saw her PMD for tonsillitis, which she completed a course of zpac. She denies any new trauma, fever, chills, nausea, vomiting, SOB, or sick contacts. <Scooter Cresporobb - Last Filed: 09/13/18 23:28> History Per: Patient History/Exam Limitations: no limitations Onset/Duration Of Symptoms: Days (1) Current Symptoms Are (Timing): Still Present Associated Symptoms: Photophobia, Blurred Vision. denies: Nausea, Vomiting Recent travel outside of the [place]: No Additional History Per: Patient <Jose M Crespo - Last Filed: 09/13/18 23:28> <Spike Chase - Last Filed: 09/15/18 14:32> Chief Complaint (Nursing): Headache Past Medical History Reviewed: Historical Data, Nursing Documentation, Vital Signs Vital Signs: Last Vital Signs Temp 97.9 F 09/13/18 19:53 Pulse 95 H 09/13/18 19:53 Resp 19 09/13/18 19:53 BP 105/60 09/13/18 19:53 Pulse Ox 100 09/13/18 20:59 - Medical History PMH: Asthma, Bipolar Disorder, Schizophrenia ("schizo effective disorder") Denies: Diabetes, Hepatitis, HIV, HTN, Chronic Kidney Disease, Seizures, Sexually Transmitted Disease Surgical History: No Surg Hx Family History: States: Unknown Family Hx - Social History Hx Tobacco Use: Yes Hx Alcohol Use: No (Ex Drinker) Hx Substance Use: No - Immunization History Hx Tetanus Toxoid Vaccination: No Hx Influenza Vaccination: No Hx Pneumococcal Vaccination: No <YvonneanthonyScooterrobb - Last Filed: 09/13/18 23:28> Vital Signs: Last Vital Signs Temp 97.3 F L 09/14/18 23:47 Pulse 87 09/14/18 23:47 Resp 20 09/14/18 23:47 BP 100/60 09/14/18 23:47 Pulse Ox 97 09/15/18 08:43 <Spike Chase M - Last Filed: 09/15/18 14:32> Review Of Systems Constitutional: Positive for: Other (lightheadedness). Negative for: Fever, Chills Eyes: Positive for: Other (photophobic) ENT: Positive for: Throat Pain (but improved). Negative for: Nose Discharge Cardiovascular: Positive for: Chest Pain. Negative for: Palpitations Respiratory: Negative for: Shortness of Breath Gastrointestinal: Negative for: Nausea, Vomiting, Abdominal Pain Musculoskeletal: Positive for: Neck Pain (throbbing) Skin: Negative for: Rash Neurological: Positive for: Headache (throbbing) <YvonneanthonyScooterrobb - Last Filed: 09/13/18 23:28> Physical Exam - Physical Exam Appears: Non-toxic, No Acute Distress, Agitated Skin: Normal Color, Warm, Dry Head: Atraumatic, Normacephalic Eye(s): bilateral: Normal Inspection, PERRL, Photophobia Ear(s): Bilateral: Normal Nose: No Flaring Oral Mucosa: Moist Tongue: Normal Appearing Throat: Erythema, Other (tonsilar hypertrophy) Neck: Decreased ROM, Other (pain with neck flexion; surgical scar noted on right side of neck) Chest: Symmetrical, No Deformity Cardiovascular: Rhythm Regular Respiratory: Normal Breath Sounds, No Rales, No Rhonchi, No Wheezing Gastrointestinal/Abdominal: Soft, No Tenderness, No Distention Back: No CVA Tenderness Neurological/Psych: Oriented x3, Normal Speech, Normal Sensation <CherieScooterrobb - Last Filed: 09/13/18 23:28> ED Course And Treatment - Laboratory Results Result Diagrams: 09/13/18 18:30 09/13/18 18:30 Lab Results: Total Bilirubin 0.3 mg/dL (0.2-1.3) 09/13/18 18:30 AST 20 U/L (14-36) 09/13/18 18:30 ALT 8 U/L (9-52) L 09/13/18 18:30 Alkaline Phosphatase 57 U/L (38-126) 09/13/18 18:30 Total Protein 7.3 g/dL (6.3-8.3) 09/13/18 18:30 Albumin 4.1 g/dL (3.5-5.0) 09/13/18 18:30 Globulin 3.2 gm/dL (2.2-3.9) 09/13/18 18:30 Albumin/Globulin Ratio 1.3 (1.0-2.1) 09/13/18 18:30 Urine Color Yellow (YELLOW) 09/13/18 18:30 Urine Clarity Hazy (Clear) 09/13/18 18:30 Urine pH 5.0 (5.0-8.0) 09/13/18 18:30 Ur Specific [place] 1.033 (1.003-1.030) H 09/13/18 18:30 Urine Protein Negative mg/dL (NEGATIVE) 09/13/18 18:30 Urine Glucose (UA) Normal mg/dL (Normal) 09/13/18 18:30 Urine Ketones Negative mg/dL (NEGATIVE) 09/13/18 18:30 Urine Blood Negative (NEGATIVE) 09/13/18 18:30 Urine Nitrate Negative (NEGATIVE) 09/13/18 18:30 Urine Bilirubin Negative (NEGATIVE) 09/13/18 18:30 Urine Urobilinogen Normal mg/dL (0.2-1.0) 09/13/18 18:30 Ur Leukocyte Esterase Trace Pauline/uL (Negative) 09/13/18 18:30 Urine WBC (Auto) 13 /hpf (0-5) H 09/13/18 18:30 Urine RBC (Auto) 9 /hpf (0-3) H 09/13/18 18:30 Ur Squamous Epith Cells 6 /hpf (0-5) H 09/13/18 18:30 Calcium Oxalate Crystal Many /hpf (<OCC) H 09/13/18 18:30 O2 Sat by Pulse Oximetry: 100 (on RA) Pulse Ox Interpretation: Normal - CT Scan/US CAT Neck Other Rad Studies (CT/US): Read By Radiologist, Radiology Report Reviewed CT/US Interpretation: EXAM: CT Neck without Intravenous Contrast. CLINICAL HISTORY: History of paraganglioma of right carotid. TECHNIQUE: Axial computed tomography images of the neck without intravenous contrast. Sagittal and coronal reformatted images were generated. 0.00 mGy-cm. CONTRAST: Without. COMPARISON: None provided. FINDINGS: Right cervical postsurgical changes are seen consistent with a history. PHARYNX: Unremarkable appearance of the nasopharynx, oropharyx, and hypopharynx. No pharyngeal mucosal based mass lesions. LARYNX: Normal appearance of the larynx. Unremarkable epiglottis. RETROPHARYNGEAL SPACE: No retropharyngeal soft tissue swelling or gas. SALIVARY GLANDS: No salivary gland abnormality evident. Unremarkable appearance of the parotid, submandibular, and sublingual glands. LYMPH NODES: No significant lymphadenopathy. THYROID: The thyroid gland is unremarkable. No nodule is evident. BONES: No acute osseous abnormality. No aggressive appearing osseous lesion. IMPRESSION: Right cervical postsurgical changes are seen consistent with a history. Unremarkable CT neck otherwise. CT Head Other Rad Studies (CT/US): Read By Radiologist, Radiology Report Reviewed CT/US Interpretation: EXAM: CT Head without Intravenous Contrast. CLINICAL HISTORY: Headache. TECHNIQUE: Axial computed tomography images of the he ad/brain without intravenous contrast. 0.00 mGy-cm. COMPARISON: None provided. FINDINGS: BRAIN. No acute intraparenchymal hemorrhage. No mass lesion. No CT evidence for acute territorial infarct. No midline shift or extra- axial collections. VENTRICLES: No hydrocephalus. ORBITS: The orbits are unremarkable. SINUSES AND MASTOIDS: The paranasal sinuses and mastoid air cells are clear. BONES: No fracture. SOFT TISSUES: Unremarkable. IMPRESSION: No acute intracranial abnormality. <Jose M Crespo - Last Filed: 09/13/18 23:28> - Laboratory Results Result Diagrams: 09/13/18 18:30 09/13/18 18:30 Lab Results: Total Bilirubin 0.3 mg/dL (0.2-1.3) 09/13/18 18:30 AST 20 U/L (14-36) 09/13/18 18:30 ALT 8 U/L (9-52) L 09/13/18 18:30 Alkaline Phosphatase 57 U/L (38-126) 09/13/18 18:30 Total Protein 7.3 g/dL (6.3-8.3) 09/13/18 18:30 Albumin 4.1 g/dL (3.5-5.0) 09/13/18 18:30 Globulin 3.2 gm/dL (2.2-3.9) 09/13/18 18:30 Albumin/Globulin Ratio 1.3 (1.0-2.1) 09/13/18 18:30 Urine Color Yellow (YELLOW) 09/13/18 18:30 Urine Clarity Hazy (Clear) 09/13/18 18:30 Urine pH 5.0 (5.0-8.0) 09/13/18 18:30 Ur Specific [place] 1.033 (1.003-1.030) H 09/13/18 18:30 Urine Protein Negative mg/dL (NEGATIVE) 09/13/18 18:30 Urine Glucose (UA) Normal mg/dL (Normal) 09/13/18 18:30 Urine Ketones Negative mg/dL (NEGATIVE) 09/13/18 18:30 Urine Blood Negative (NEGATIVE) 09/13/18 18:30 Urine Nitrate Negative (NEGATIVE) 09/13/18 18:30 Urine Bilirubin Negative (NEGATIVE) 09/13/18 18:30 Urine Urobilinogen Normal mg/dL (0.2-1.0) 09/13/18 18:30 Ur Leukocyte Esterase Trace Pauline/uL (Negative) 09/13/18 18:30 Urine WBC (Auto) 13 /hpf (0-5) H 09/13/18 18:30 Urine RBC (Auto) 9 /hpf (0-3) H 09/13/18 18:30 Ur Squamous Epith Cells 6 /hpf (0-5) H 09/13/18 18:30 Calcium Oxalate Crystal Many /hpf (<OCC) H 09/13/18 18:30 Urine HCG, Qual Negative (NEGATIVE) 09/14/18 13:29 Urine HCG, Qual Negative (NEGATIVE) 09/14/18 13:29 <Spike Chase - Last Filed: 09/15/18 14:32> Medical Decision Making Medical Decision Making: Impression: H/o Paraganglioma r/o Meningitis vs Migraine vs Neoplasm Plan: 17:30. Attempted call to ; left message with service Labs,POC Urine, UA, CT Head and Neck, CXR ordered Tylenol 975 mg PO given Patient reassessed and still in pain; covering head with sheet Dr. Hickman assessed and examined patient Benadryl 25mg IVP and Reglan 10mg IVP given Per report by [facility] RAD: CT head- Right cervical postsurgical changes are seen consistent with a history. Unremarkable CT neck otherwise CT neck-No acute intracranial abnormality. discussed case with Dr. Chase who also examined patient patient uncooperative and uncomfortable during examination unable to attempt LP at this time Blood Culture ordered Rocephin IVPB and Vanco 250ml IVPB started as prophylaxis 20:14 2nd attempt to call Dr. Bentley; left message with service. No response 20:22 Discussed case with who accepts patient to be admitted under his service 20:27 Discussed case with neurologist Dr. Gates who requested MRI Head with/without contrast and MRA of Head and Neck. He also requested that Magnesium 1gm, Decadron 10mg IV, and Depakote 5oomg given to patient for treatment of possible Migraine IR contacted but does not perform Lumbar Punctures Anesthesia consult ordered All orders are in as requested by above physicians <Jose M Crespo - Last Filed: 09/13/18 23:28> Disposition Discussed With Dr.: Arsenio Marrero Doctor Will See Patient In The: Hospital - Disposition Disposition Time: 20:14 <Jose M Crespo - Last Filed: 09/13/18 23:28> <Spike Chase - Last Filed: 09/15/18 14:32> - Disposition Disposition: HOSPITALIZED Condition: STABLE - Clinical Impression Clinical Impression: Headache, Meningitis, Paraganglioma - PA / ARTIST WOODBLOCK / Resident Statement MD/ has reviewed & agrees with the documentation as recorded. MD/DO has examined the patient and agrees with the treatment plan. - Scribe Statement The provider has reviewed the documentation as recorded by the Frank Gannon All medical record entries made by the Trishaibashia were at my direction and personally dictated by me. I have reviewed the chart and agree that the record accurately reflects my personal performance of the history, physical exam, medical decision making, and the department course for this patient. I have also personally directed, reviewed, and agree with the discharge instructions and disposition. <Jose M Crespo - Last Filed: 09/13/18 23:28>
[2018-09-13] MEDS ORDERED: Magnesium Sulfate 1 gm in D5W 2 GM/200 ML BAG IVPB ONE (21:18)
[2018-09-13] MEDS ORDERED: Dexamethasone 4 mg/1 ml ONE (21:18)
[2018-09-13] MEDS ORDERED: Divalproex 500 mg DR Tab PO STA (21:23)
[2018-09-13] MEDS: Magnesium Sulfate 1 gm in D5W 1 GM/100 ML BAG IVPB SCH ×2 (21:25→21:52)
[2018-09-13] MEDS ORDERED: Divalproex 500 mg DR Tab PO ONE (22:04)
[2018-09-13] MEDS ORDERED: Vancomycin 1 GM 1 GM/250 ML BAG IVPB ONE (22:13)
--- NOTE | 2018-09-14 07:36 | CT ---
Date of service: 09/13/2018 PROCEDURE: CT HEAD WITHOUT CONTRAST. HISTORY: Headache COMPARISON: None available. TECHNIQUE: Axial computed tomography images were obtained through the head/brain without intravenous contrast. Radiation dose: Total exam DLP = 1064.97 mGy-cm. This CT exam was performed using one or more of the following dose reduction techniques: Automated exposure control, adjustment of the mA and/or kV according to patient size, and/or use of iterative reconstruction technique. FINDINGS: HEMORRHAGE: No intracranial hemorrhage. BRAIN: No mass effect or edema. No atrophy or chronic microvascular ischemic changes. VENTRICLES: Unremarkable. No hydrocephalus. CALVARIUM: Unremarkable. PARANASAL SINUSES: Unremarkable as visualized. No significant inflammatory changes. MASTOID AIR CELLS: Unremarkable as visualized. No inflammatory changes. OTHER FINDINGS: None. IMPRESSION: No CT evidence of acute intracranial hemorrhage mass effect or midline shift. Preliminary report was submitted by [facility] Radiology contains concordant findings.
[2018-09-14 08:05] VITALS: RESP 20
[2018-09-14] MEDS: Oxycodone/Acetaminophen 5/325 mg Tab PO PRN ×2 (09:10→14:01)
--- NOTE | 2018-09-14 09:38 | CT ---
Date of service: 09/13/2018 PROCEDURE: CT NECK WITHOUT CONTRAST HISTORY: h/o paraganglioma of right carotid COMPARISON: Comparison is made to the previous MRI of the neck dated 11/01/[address] study dated 09/02/2017 TECHNIQUE: CT of the neck without intravenous contrast. Coronal and sagittal reformats generated. Radiation dose: Total exam DLP = 366.1 mGy-cm. This CT exam was performed using one or more of the following dose reduction techniques: Automated exposure control, adjustment of the mA and/or kV according to patient size, and/or use of iterative reconstruction technique. FINDINGS: The assessment is limited without IV contrast administration. NASOPHARYNX: Diffuse thickening of nasopharynx soft tissue is again noted. SUPRAHYOID NECK: Enlargement of the lingular and palatine tonsils is also again noted. Otherwise unremarkable oropharynx, oral cavity, parapharyngeal space and retropharyngeal space. INFRAHYOID NECK: No significant interval changes noted in the larynx, hypopharynx, and supraglottic space. Vocal cords intact. MASS: No evidence of new mass in this limited noncontrast study. GLANDS: Parotid and submandibular glands unremarkable. Normal size thyroid gland, without nodule. LYMPH NODES: Normal. No lymphadenopathy. CERVICAL SPINE: No fracture or focal lesion. OTHER FINDINGS: Postsurgical changes are again noted adjacent to the right carotid bifurcation. IMPRESSION: Limited evaluation without IV contrast administration. No evidence of significant interval changes compared to the prior study dated 09/02/2017. If clinically warranted further assessment by other modality such as ultrasound or MRI may be obtained. Preliminary report was submitted by [facility] Radiology contains concordant findings.
--- NOTE | 2018-09-14 12:04 | RAD ---
Date of service: 09/13/2018 HISTORY: R/O PNA COMPARISON: Comparison is made with 10/21/2017 TECHNIQUE: 1 view obtained. FINDINGS: LUNGS: No active pulmonary disease. PLEURA: No significant pleural effusion identified, no pneumothorax apparent. CARDIOVASCULAR: No aortic atherosclerotic calcification present. Normal cardiac size. No pulmonary vascular congestion. OSSEOUS STRUCTURES: No significant abnormalities. VISUALIZED UPPER ABDOMEN: Normal. OTHER FINDINGS: None. IMPRESSION: No radiographic evidence of pneumonia.
[2018-09-14] MEDS ORDERED: Albuterol HFA 90 mcg/actuation (8 g) INH PRN (14:51)
--- NOTE | 2018-09-14 15:53 | CP.PCM.CON ---
History of Present Illness - History of Present Illness History of Present Illness: Neurology Consultation Note: Consult requested by Dr. Marrero Ms. 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 Patient states that she hasn't experienced this pain before and rates it as a 10/10. No reported fever. Vital signs were normal. CT head did not show any acute findings. MRI of the brain and MRA of the head/neck were unremarkable. The patient's pain is improved, but she still complains of headache and photophobia. She does not have any neck stiffness or meningeal signs. Review of Systems - Constitutional Constitutional: As Per HPI - EENT Eyes: absent: As Per HPI, Blind Spots, Blurred Vision, Change in Vision, Decreased Night Vision, Diplopia, Discharge, Dry Eye, Exophthalmos, Floaters, Irritation, Itchy Eyes, Loss of Peripheral Vision, Pain, Photophobia, Requires Corrective Lenses, Sees Flashes, Spots in Vision, Tunnel Vision, Other Visual Disturbances, Loss of Vision, Other Ears: absent: As Per HPI, Decreased Hearing, Ear Discharge, Ear Pain, Tinnitus, Abnormal Hearing, Disequilibrium, Dizziness, Other Additional comments: per HPI - Cardiovascular Cardiovascular: absent: As Per HPI, Acrocyanosis, Chest Pain, Chest Pain at Rest, Chest Pain with Activity, Claudication, Diaphoresis, Dyspnea, Dyspnea on Exertion, Edema, Irregular Heart Rhythm, Pain Radiating to Arm/Neck/Jaw, Leg Edema, Leg Ulcers, Lightheadedness, Orthopnea, Palpitations, Paroxysmal Nocturnal Dyspnea, Pedal Edema, Radiating Pain, Rapid Heart Rate, Slow Heart Rate, Syncope, Other - Respiratory Respiratory: absent: As Per HPI, Cough, Dyspnea, Hemoptysis, Dyspnea on Exertion, Wheezing, Snoring, Stridor, Pain on Inspiration, Chest Congestion, Excessive Mucous Production, Change in Mucous Color, Pain with Coughing, Other - Gastrointestinal Gastrointestinal: absent: As Per HPI, Abdominal Pain, Belching, Bloating, Change in Bowel Habits, Change in Stool Character, Coffee Ground Emesis, Constipation, Cramping, Diarrhea, Dyspepsia, Dysphagia, Early Satiety, Excessive Flatus, Fecal Incontinence, Heartburn, Hematemesis, Hematochezia, Loose Stools, Melena, Nausea, Odynophagia, Temesmus, Vomiting, Other - Musculoskeletal Musculoskeletal: As Per HPI - Integumentary Integumentary: absent: As Per HPI, Acne, Alopecia, Bleeding Lesions, Change in Hair, Change in Nails, Change in Pigmentation, Changing Lesions, Dry Skin, Erythema, Furuncle, Hirsutism, Lesions, New Lesions, Non-Healing Lesions, Photosensitivity, Pruritus, Rash, Skin Pain, Skin Ulcer, Sores, Striae, Swelling, Unusual Bruising, Wounds, Jaundice, Other - Neurological Neurological: As Per HPI - Psychiatric Psychiatric: absent: As Per HPI, Abnormal Sleep Pattern, Anhedonia, Anxiety, Auditory Hallucinations, Behavioral Changes, Change in Appetite, Change in Libido, Confusion, Depression, Difficulty Concentrating, Hallucinations, Homicidal Ideation, Hopelessness, Irritability, Memory Loss, Mood Swings, Panic Attacks, Paranoia, Suicidal Ideation, Visual Hallucinations, Tactile Hallucinations, Other - Endocrine Endocrine: absent: As Per HPI, Change in Body Appearance, Change in Libido, Cold Intolorance, Deepening of Voice, Excessive Sweating, Fatigue, Flushing, Heat Intolorance, Increase in Ring/Shoe/Hat Size, Palpitations, Polydipsia, Polyphagia, Polyuria, Other Past Patient History - Infectious Disease Hx of Infectious Diseases: None - Past Medical History & Family History Past Medical History?: Yes - Past Social History Smoking Status: Light Smoker < 10 Cigarettes Daily - CARDIAC Hx Hypertension: No - PULMONARY Hx Asthma: Yes - NEUROLOGICAL Hx Seizures: No - HEENT Hx HEENT Problems: No - RENAL Hx Chronic Kidney Disease: No - ENDOCRINE/METABOLIC Hx Endocrine Disorders: No - HEMATOLOGICAL/ONCOLOGICAL Hx Human Immunodeficiency Virus (HIV): No - INTEGUMENTARY Hx Dermatological Problems: No - MUSCULOSKELETAL/RHEUMATOLOGICAL Hx Musculoskeletal Disorders: No Hx Falls: No - GASTROINTESTINAL Hx Gastrointestinal Disorders: No - GENITOURINARY/GYNECOLOGICAL Hx Sexually Transmitted Disorders: No - PSYCHIATRIC Hx Bipolar Disorder: Yes Hx Schizophrenia: Yes ("schizo effective disorder") Hx Substance Use: No - SURGICAL HISTORY Hx Surgeries: Yes Other/Comment: "CAROTID TUMOR, COULD NOT BE REMOVED, HAD RADIATION". 2011 - ANESTHESIA Hx Anesthesia: Yes Hx Anesthesia Reactions: No Hx Malignant Hyperthermia: No Meds Allergies/Adverse Reactions: Allergies Allergy/AdvReac Type Severity Reaction Status Date / Time cuenca Allergy Verified 09/13/18 16:44 - Medications Medications: Current Medications Albuterol (Ventolin Hfa 90 Mcg/Actuation (8 G)) 1 puff INH RQ4 PRN PRN Reason: Shortness of Breath Benztropine Mesylate (Cogentin) 2 mg PO HS [facility] Lamotrigine (Lamictal) 50 mg PO DAILY [facility] Oxycodone/Acetaminophen (Percocet 5/325 Mg Tab) 1 tab PO Q4H PRN PRN Reason: Pain, moderate (4-7) Stop: 09/17/18 08:45 Last Admin: 09/14/18 14:01 Dose: 1 tab Pneumococcal Polyvalent Vaccine (Pneumovax 23 Vaccine) 0.5 ml IM .ONCE ONE Stop: 09/16/18 10:01 Quetiapine Fumarate (Seroquel) 25 mg PO HS [facility] Physical Exam - Constitutional Appears: Well - Head Exam Head Exam: ATRAUMATIC, NORMAL INSPECTION, NORMOCEPHALIC - Eye Exam Eye Exam: EOMI, Normal appearance, PERRL Pupil Exam: NORMAL ACCOMODATION, PERRL - ENT Exam ENT Exam: Mucous Membranes Moist, Normal Exam - Neck Exam Neck exam: Positive for: Normal Inspection - Respiratory Exam Respiratory Exam: Clear to Auscultation Bilateral, NORMAL BREATHING PATTERN - Cardiovascular Exam Cardiovascular Exam: REGULAR RHYTHM, +S1, +S2 - GI/Abdominal Exam GI & Abdominal Exam: Normal Bowel Sounds, Soft. absent: Tenderness - Extremities Exam Extremities exam: Positive for: normal inspection - Back Exam Back exam: NORMAL INSPECTION - Neurological Exam Neurological exam: Alert, CN II-XII Intact, Normal Gait, Oriented x3, Reflexes Normal Additional comments: back pain, but no meningeal signs, no nuchal rigidity or neck stiffness. - Psychiatric Exam Psychiatric exam: Normal Affect, Normal Mood - Skin Skin Exam: Dry, Intact, Normal Color, Warm Results - Vital Signs Recent Vital Signs: Last Vital Signs Temp 97.9 F 09/14/18 08:00 Pulse 90 09/14/18 08:00 Resp 20 09/14/18 08:00 BP 98/64 L 09/14/18 08:00 Pulse Ox 100 09/14/18 08:00 - Labs Result Diagrams: 09/13/18 18:30 09/13/18 18:30 Labs: Laboratory Results - last 24 hr 09/13/18 09/13/18 09/13/18 18:30 18:30 18:30 WBC 15.1 H D RBC 4.27 Hgb 12.9 Hct 38.7 MCV 90.5 MCH 30.2 MCHC 33.3 RDW 12.8 Plt Count 431 H MPV 8.2 Neut % (Auto) 50.9 Lymph % (Auto) 37.3 Imperial % (Auto) 10.4 H Eos % (Auto) 0.9 Baso % (Auto) 0.5 Neut # (Auto) 7.7 H Lymph # (Auto) 5.6 H Imperial # (Auto) 1.6 H Eos # (Auto) 0.1 Baso # (Auto) 0.1 Sodium 140 Potassium 4.3 Chloride 102 Carbon Dioxide 30 Anion Gap 12 BUN 24 H Creatinine 1.2 Est GFR ( Amer) > 60 Est GFR (Non-Af Amer) 55 Random Glucose 109 H Calcium 9.1 Total Bilirubin 0.3 AST 20 ALT 8 L Alkaline Phosphatase 57 Total Protein 7.3 Albumin 4.1 Globulin 3.2 Albumin/Globulin Ratio 1.3 Urine Color Yellow Urine Clarity Hazy Urine pH 5.0 Ur Specific Mcgregor 1.033 H Urine Protein Negative Urine Glucose (UA) Normal Urine Ketones Negative Urine Blood Negative Urine Nitrate Negative Urine Bilirubin Negative Urine Urobilinogen Normal Ur Leukocyte Esterase Trace Urine WBC (Auto) 13 H Urine RBC (Auto) 9 H Ur Squamous Epith Cells 6 H Calcium Oxalate Crystal Many H Urine HCG, Qual 09/14/18 13:29 WBC RBC Hgb Hct MCV MCH MCHC RDW Plt Count MPV Neut % (Auto) Lymph % (Auto) Imperial % (Auto) Eos % (Auto) Baso % (Auto) Neut # (Auto) Lymph # (Auto) Imperial # (Auto) Eos # (Auto) Baso # (Auto) Sodium Potassium Chloride Carbon Dioxide Anion Gap BUN Creatinine Est GFR ( Amer) Est GFR (Non-Af Amer) Random Glucose Calcium Total Bilirubin AST ALT Alkaline Phosphatase Total Protein Albumin Globulin Albumin/Globulin Ratio Urine Color Urine Clarity Urine pH Ur Specific Mcgregor Urine Protein Urine Glucose (UA) Urine Ketones Urine Blood Urine Nitrate Urine Bilirubin Urine Urobilinogen Ur Leukocyte Esterase Urine WBC (Auto) Urine RBC (Auto) Ur Squamous Epith Cells Calcium Oxalate Crystal Urine HCG, Qual Negative Assessment & Plan (1) Migraine Assessment and Plan: There are no meningeal signs or fever. Headache is consistent with migraine. Neuroimaging is negative. I recommend treating the migraine with decadron 10 mg IV, depakote 500 mg IV and magnesium sulfate 2 grams IV. Will start topamax 25 mg daily and titrate up for migraine prevention. Thank you for this consultation. Status: Acute
--- NOTE | 2018-09-14 16:10 | CP.PCM.PCO ---
Physician Communication Note - Physician Communication Note Physician Communication Note: Pateint is in MRI Addendum Addendum: I reviewed the patient's history, labs, imaging and presentation. The patient is in the MRI scanner for the next two hours. I will follow up with the results and discuss the case with nursing. If an in-person visit is not possible today, I will perform a teleneurology visit.
--- NOTE | 2018-09-14 17:19 | MRI ---
Date of service: 09/14/2018 PROCEDURE: MRI BRAIN WITH AND WITHOUT CONTRAST HISTORY: h/o paraganglioma with headache and neck pain COMPARISON: None available. TECHNIQUE: Multiplanar, multisequence MR images of the brain were obtained with and without intravenous contrast enhancement. FINDINGS: HEMORRHAGE: None DWI: No evidence of an acute or early subacute infarction. BRAIN PARENCHYMA: There are hyperintense T2 FLAIR signal noted in the posterior aspect of the brain involving mainly the occipital and parietal lobes of uncertain etiology. The differential diagnosis includes but not limited to PRES or sequela of prior inflammatory process. No evidence of mass effect or midline shift. No atrophy or chronic microvascular ischemic changes. ENHANCEMENT: No abnormal intracranial enhancement. VENTRICLES: Unremarkable. No hydrocephalus. CRANIUM: Unremarkable. ORBITS: Grossly unremarkable. PARANASAL SINUSES/MASTOIDS: Clear VASCULAR SYSTEM: Skull base flow voids intact. OTHER FINDINGS: None . IMPRESSION: Foci of abnormal hyperintense T2 FLAIR signal noted in the occipital and parietal lobes of uncertain etiology. No evidence of acute infarction. No evidence of enhancing mass lesion mass effect or midline shift.
--- NOTE | 2018-09-14 17:21 | MRI ---
Date of service: 09/14/2018 PROCEDURE: Magnetic Resonance Angiography Brain HISTORY: h/o paraganglioma with headache and neck pain COMPARISON: None available. TECHNIQUE: 3D time of flight MR angiography of the intracranial arteries was performed. Rotating maximum intensity projection images were generated. FINDINGS: INTERNAL CAROTID ARTERIES: Unremarkable. The skull base, petrous, cavernous and supraclinoid segments are bilaterally widely patient. ANTERIOR CEREBRAL ARTERIES: Unremarkable. The left A1 is very small in size. The right A1 is prominent in size.. Smaller distal branches unremarkable, as visualized. MIDDLE CEREBRAL ARTERIES: Unremarkable. M1 and M2 segments are widely patent. Perisylvian branches grossly symmetric. POSTERIOR CIRCULATION: Basilar Artery: Unremarkable. Distal Vertebral Arteries: The distal left vertebral artery is larger than the right. Posterior Cerebral Arteries: Unremarkable. Posterior Inferior Cerebellar Arteries: Unremarkable. ANEURYSM/ VASCULAR MALFORMATIONS: None. OTHER FINDINGS: None. IMPRESSION: No evidence of occlusion or critical stenosis in the visualized intracranial arteries. No evidence of aneurysm or vascular anomaly.
--- NOTE | 2018-09-14 17:31 | MRI ---
Date of service: 09/14/2018 PROCEDURE: MR Angiography of the neck without contrast HISTORY: h/o paraganglioma with headache and neck pain COMPARISON: None available. TECHNIQUE: 3D [id number] angiography of the neck was performed. Rotating maximum intensity projection images of the cervical carotid and vertebral arteries were generated. The origins of the common carotid arteries were not visualized, which is a limitation inherent to the non-contrast time of flight technique. FINDINGS: RIGHT CAROTID ARTERIES: Common Carotid Artery: Normal. Carotid Bifurcation: Normal. Internal Carotid Artery:Normal. External Carotid Artery (proximal branches): Normal. LEFT CAROTID ARTERIES: Common Carotid Artery: Normal. Carotid Bifurcation: Normal. Internal Carotid Artery:Normal. External Carotid Artery (proximal branches): Normal. VERTEBRAL ARTERIES: Right Vertebral Artery: The right vertebral artery is small in size. Left Vertebral Artery: Left vertebral artery is dominant. OTHER FINDINGS: None. IMPRESSION: No evidence of occlusion or focal critical stenosis in the carotid arteries at the neck.
[2018-09-14 23:56] VITALS: O2SAT 97
[2018-09-15] MEDS: Oxycodone/Acetaminophen 5/325 mg Tab PO PRN ×3 (06:47→15:50)
[2018-09-15] MEDS ORDERED: Valproate 500 MG in Sodium Chloride 0.9% 100 ML IVPB ONE (16:10)
[2018-09-15] MEDS ORDERED: Dexamethasone 4 mg/1 ml IV STA (16:10)
[2018-09-15] MEDS: Magnesium Sulfate 1 gm in D5W 1 GM/100 ML BAG IVPB SCH ×2 (16:15→17:25)
--- NOTE | 2018-09-15 16:16 | HP ---
HISTORY OF PRESENT ILLNESS: A 23-year-old female with a history of paraganglioma, status post radiation. The patient is complaining of severe pain. PHYSICAL EXAMINATION: GENERAL: The patient is awake, alert, and oriented . HEENT: Within normal limits. NECK: Supple. CHEST: Symmetrical. HEART: Regular. ABDOMEN: Soft. EXTREMITIES: No edema. IMPRESSION: The patient is status post bilateral ____ radiation. The patient is to get bedrest. Neuro check. Neurology consult. Arsenio Marrero MD
--- NOTE | 2018-09-16 07:21 | CP.PCM.PN ---
Subjective - Date & Time of Evaluation Date of Evaluation: 09/16/18 Time of Evaluation: 07:20 Objective - Vital Signs/Intake and Output Vital Signs (last 24 hours): Temp Pulse Resp BP Pulse Ox 97.9 F 93 H 20 120/73 97 09/15/18 23:40 09/15/18 23:40 09/15/18 23:40 09/15/18 23:40 09/16/18 01:00 Intake and Output: 09/16/18 09/16/18 06:59 18:59 Intake Total 540 Output Total 0 Balance 540 - Medications Medications: Current Medications Albuterol (Ventolin Hfa 90 Mcg/Actuation (8 G)) 1 puff INH RQ4 PRN PRN Reason: Shortness of Breath Benztropine Mesylate (Cogentin) 2 mg PO [facility] Last Admin: 09/15/18 21:49 Dose: 2 mg Lamotrigine (Lamictal) 50 mg PO [facility] Last Admin: 09/15/18 21:48 Dose: 50 mg Ondansetron HCl (Zofran Inj) 4 mg IVP Q6H PRN PRN Reason: Nausea/Vomiting Last Admin: 09/15/18 13:59 Dose: 4 mg Oxycodone/Acetaminophen (Percocet 5/325 Mg Tab) 1 tab PO Q4H PRN PRN Reason: Pain, moderate (4-7) Stop: 09/17/18 08:45 Last Admin: 09/15/18 15:50 Dose: 1 tab Pneumococcal Polyvalent Vaccine (Pneumovax 23 Vaccine) 0.5 ml IM .ONCE ONE Stop: 09/16/18 10:01 Quetiapine Fumarate (Seroquel) 25 mg PO [facility] Last Admin: 09/15/18 21:49 Dose: 25 mg Topiramate (Topamax) 25 mg PO DAILY [facility] Last Admin: 09/15/18 16:25 Dose: 25 mg - Labs Labs: 09/13/18 18:30 09/13/18 18:30 - Head Exam Head Exam: ATRAUMATIC, NORMAL INSPECTION - Eye Exam Eye Exam: EOMI, Normal appearance Pupil Exam: NORMAL ACCOMODATION, PERRL - ENT Exam ENT Exam: Mucous Membranes Moist, Normal Exam - Neck Exam Neck Exam: Normal Inspection - Respiratory Exam Respiratory Exam: Clear to Ausculation Bilateral, NORMAL BREATHING PATTERN - Cardiovascular Exam Cardiovascular Exam: REGULAR RHYTHM, +S1, +S2. absent: Tachycardia - GI/Abdominal Exam GI & Abdominal Exam: Soft, Normal Bowel Sounds - Neurological Exam Neurological Exam: Alert, Awake, CN II-XII Intact, Oriented x3
[2018-09-16 08:22] VITALS: BP 103/70; PULSE 99; TEMP 98.1
--- NOTE | 2018-09-16 08:27 | CP.PCM.PN ---
Subjective - Date & Time of Evaluation Date of Evaluation: 09/16/18 Time of Evaluation: 08:26 - Subjective Subjective: Medicine Progress Note: Dr. 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 Per chart review patient also had some associated symptoms of lightheadedness and blurry vision. She also at the time took Excedrin with very little improvement in symptoms. ROS was limited during today's visit .Patient was combative and used expletives and would only speak to Dr. Marrero. Per chart review: PMHx: bilateral carotid paraganglioma, asthma and bipolar disorder PSHx: attempted removal of paraganglioma Allergy: NKDA Social: Admits to tobacco and alcohol, denies drug use Family Hx: non contributory Objective - Vital Signs/Intake and Output Vital Signs (last 24 hours): Temp Pulse Resp BP Pulse Ox 98.1 F 99 H 20 103/70 97 09/16/18 08:21 09/16/18 08:21 09/16/18 08:21 09/16/18 08:21 09/16/18 08:21 Intake and Output: 09/16/18 09/16/18 06:59 18:59 Intake Total 540 Output Total 0 Balance 540 - Medications Medications: Current Medications Albuterol (Ventolin Hfa 90 Mcg/Actuation (8 G)) 1 puff INH RQ4 PRN PRN Reason: Shortness of Breath Benztropine Mesylate (Cogentin) 2 mg PO HS [facility] Last Admin: 09/15/18 21:49 Dose: 2 mg Lamotrigine (Lamictal) 50 mg PO HS [facility] Last Admin: 09/15/18 21:48 Dose: 50 mg Ondansetron HCl (Zofran Inj) 4 mg IVP Q6H PRN PRN Reason: Nausea/Vomiting Last Admin: 09/15/18 13:59 Dose: 4 mg Oxycodone/Acetaminophen (Percocet 5/325 Mg Tab) 1 tab PO Q4H PRN PRN Reason: Pain, moderate (4-7) Stop: 09/17/18 08:45 Last Admin: 09/15/18 15:50 Dose: 1 tab Pneumococcal Polyvalent Vaccine (Pneumovax 23 Vaccine) 0.5 ml IM .ONCE ONE Stop: 09/16/18 10:01 Quetiapine Fumarate (Seroquel) 25 mg PO HS [facility] Last Admin: 09/15/18 21:49 Dose: 25 mg Topiramate (Topamax) 25 mg PO DAILY [facility] Last Admin: 09/15/18 16:25 Dose: 25 mg - Labs Labs: 09/13/18 18:30 09/13/18 18:30 - Head Exam Head Exam: ATRAUMATIC, NORMAL INSPECTION - Eye Exam Eye Exam: EOMI, Normal appearance Pupil Exam: NORMAL ACCOMODATION - ENT Exam ENT Exam: Mucous Membranes Moist, Normal Exam - Neck Exam Neck Exam: Normal Inspection - Respiratory Exam Respiratory Exam: Clear to Ausculation Bilateral, NORMAL BREATHING PATTERN - GI/Abdominal Exam GI & Abdominal Exam: Soft, Normal Bowel Sounds. absent: Tenderness, Mass - Back Exam Back Exam: NORMAL INSPECTION. 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 Plan: 1. Headache. Head ct: No CT evidence of acute intracranial hemorrhage mass effect or midline shift. Soft tissue neck ct: Limited evaluation without IV contrast administration. No evidence of significant interval changes compared to the prior study dated 09/02/2017. If clinically warranted further assessment by other modality such as ultrasound or MRI may be obtained. MRA neck w/o contrast: No evidence of occlusion or focal critical stenosis in the carotid arteries at the neck. MRA head w/o contrast: No evidence of occlusion or critical stenosis in the visualized intracranial arteries. No evidence of aneurysm or vascular anomaly. Head ct:Foci of abnormal hyperintense T2 FLAIR signal noted in the occipital and parietal lobes of uncertain etiology. No evidence of acute infarction. No evidence of enhancing mass lesion mass effect or midline shift. IV Dexamethasone given. IV Valproate x [address] Gates consulted: There are no meningeal signs or fever. Headache is consistent with migraine. Neuroimaging is negative. I recommend treating the migraine with decadron 10 mg IV, depakote 500 mg IV and magnesium sulfate 2 grams IV. Will start topamax 25 mg daily and titrate up for migraine prevention. 2.Bipolar disorder -Continue Lamictal 50mg PO HS 3.Schizoaffective disorder -Continue 25mg PO HS ppx [facility] GI ppx not indicated at bedside. Dispo: Patient stable to be discharged. Discharge Instructions: 1.F/u with PMD within 5 days of discharge. 2.F/u with Neurology within 5 days of discharge. 3. Return to hospital for any new or worsening symptoms. Medications: 1.Cogentin 2mg PO HS, #30, No refills 2.Lamictal 50 mg PO HS, #30, No refills 3.Seroquel 25 mg PO HS, #30, No refills 4.Topamax 25mg PO Daily, #30, No refills All management per Dr. Janes Young, PGY-2
[2018-09-16] MEDS ORDERED: Pneumococcal 23-Valent Vaccine IM ONE (10:00)
--- NOTE | 2018-09-16 12:44 | PCM.PSYCH ---
Initial Psychiatric Evaluation - Initial Psychiatric Evaluation Type of Admission: Voluntary Legal Status: Capacity Chief Complaint (in patient's own words): "Im Jumpy, shaky" History of Present Illness and Precipitating Events: PGY-1 psych consult note for Dr Marx service Reason for consult: Hx of bipolar, schizoaffective disorder Patient is a 23 year old female, single, lives with daughter, admitted to the hospital 09/13 for evaluation of migraines to rule out meningitis, seen and examined at bedside. Patient was originally upset and asking when she will leave the hospital. Patient admits to have been admitted to psych unit/hospital in the past, and has been seen by psychiatrist for her condition. Patient denies any flight of ideas or rapid thinking, any changes in sleep, any visual or auditory hallucinations. Patient has been demanding to speak with primary doctor to be discharged as pt states she needs to take care of her daughter. Denies any suicidal/homicidal ideation. Past Med hx: as stated above Past psych: Bipolar, schizoaffective dz Meds: Seroquel 25 mg PO QD, Lamictal 50 mg PO HS, Haldol 100 mg IM once a month, Cogentin 2 mg PO HS Current Medications: Active Medications Generic Name Dose Route Start Last Admin Trade Name Freq PRN Reason Stop Dose Admin Albuterol 1 puff 09/14/18 14:51 Ventolin Hfa 90 Mcg/Actuation (8 G) INH RQ4 PRN Shortness of Breath Benztropine Mesylate 2 mg 09/14/18 22:00 09/15/18 21:49 Cogentin PO 2 mg HS MARTA Administration Lamotrigine 50 mg 09/15/18 22:00 09/15/18 21:48 Lamictal PO 50 mg HS MARTA Administration Ondansetron HCl 4 mg 09/14/18 19:45 09/16/18 12:20 Zofran Inj IVP 4 mg Q6H PRN Administration Nausea/Vomiting Oxycodone/Acetaminophen 1 tab 09/14/18 08:44 09/15/18 15:50 Percocet 5/325 Mg Tab PO 09/17/18 08:45 1 tab Q4H PRN Administration Pain, moderate (4-7) Quetiapine Fumarate 25 mg 09/14/18 22:00 09/15/18 21:49 Seroquel PO 25 mg HS MARTA Administration Topiramate 25 mg 09/15/18 16:15 09/15/18 16:25 Topamax PO 25 mg DAILY MARTA Administration Past Psychiatric History - Past Psychiatric History Previous Treatment History: Inpatient Pertinent Medical Hx (Current Medical&Sleep Prob, Allergies): Allergies Allergy/AdvReac Type Severity Reaction Status Date / Time cuenca Allergy Verified 09/13/18 16:44 Benztropine [Benztropine Mesylate] 2 mg PO HS #30 tab 09/16/18 Quetiapine Fumarate [Seroquel] 25 mg PO HS #30 tab 09/16/18 Topiramate [Topamax] 25 mg PO DAILY #30 tab 09/16/18 lamoTRIgine [LaMICtal] 50 mg PO HS #30 tab 09/16/18 Review of Systems - Psychiatric Psychiatric: As Per HPI, Anxiety. absent: Abnormal Sleep Pattern, Auditory Hallucinations, Change in Appetite, Depression, Hallucinations, Homicidal Ideation, Suicidal Ideation, Visual Hallucinations Mental Status Examination - Personal Presentation Personal Presentation: Looks stated age - Affect Affect: Constricted - Motor Activity Motor Activity: Calm - Reliability in Providing Information Reliability in Providing Information: Fair - Speech Speech: Organized - Mood Mood: Anxious - Formal Thought Process Formal Thought Process: No Impairment - Cognitive Functions Orientation: Person, Place, Situation, Time Sensorium: Alert Attention/Concentration: Attentive Abstract Thinking: Hughes Judgement: Intact, as evidence by: Insight regarding need for hospitalization Memory: Remote intact, as evidenced by: Abilit to recall sig. life events DSM 5 DX - DSM 5 DSM 5 Diagnosis: Bipolar disorder - Chronic Schizoaffective disorder - Chronic - Recommended/Plan of Treatment Treatment Recommendations and Plan of Treatment: Continue current psych medications while in house Resume home medications as indicated Continue to follow up with PMD/Psychiatrist Follow after care plan as discussed. Plan d/w Dr Francisco J Huerta, PGY-1
== END 2018-09-16 14:26 | disposition home or self-care (01) ==
LOC: C.ER 16:39 → C.9E 20:36 → C.3T 21:48
PROVIDERS: ADMIT Internal Medicine Pulmonary Disease; ATTEND Internal Medicine Pulmonary Disease
DX: F25.9 Schizoaffective disorder, unspecified (principal); F31.9 Bipolar disorder, unspecified; G43.909 Migraine, unspecified, not intractable, without status migrainosus; J45.909 Unspecified asthma, uncomplicated; Z79.899 Other long term (current) drug therapy; F17.210 Nicotine dependence, cigarettes, uncomplicated; Z92.3 Personal history of irradiation
CPT/HCPCS: 36415; 70450; 70490; 70544; 70547; 70553; 71045; 80053; 81001; 81025; 84703; 85025; 87040; 96365; 96366; 96367; 96375; 96376; 99285; G0378; J0696; J1100; J2405; J2765; J3475; J7030; J7050